=== PATIENT | female | born 1940 | race Caucasian/White ===

== ENCOUNTER 2020-05-12 13:42 | Outpatient (CLI) | payer MEDICARE, SELFPAY ==
--- NOTE | ~2020-05-12 | MR_ITS ---
EXAMINATION: MR knee RT wo con DATE: 05/12/2020 16:01 INDICATION: Right knee pain. TECHNIQUE: Magnetic resonance imaging (MRI) of the right knee was performed without intravenous contr ast. Sequences included axial PD-weighted FS FSE, coronal PD-weighted FSE and PD-weighted FS FSE, sag ittal PD-weighted FSE, and sagittal T2-weighted FS FSE. COMPARISON: Right knee radiographs 04/28/2020 FINDINGS: Medial compartment: There is a complex tear involving body and posterior horn of medial meniscus. There is shallow partia l-thickness cartilage loss of tibial condyle. There is deep partial thickness cartilage loss of femor al condyle involving the medial, central, and lateral articular surface. There is shallow partial-thi ckness cartilage loss of the femoral condyle posterior articular surface. Osteophytes are noted. Lateral compartment: Lateral meniscus is normal. Lateral compartment cartilage is normal. Patellofemoral compartment: There is full-thickness cartilage loss of patellar medial facet, median ridge, and medial aspect of l ateral facet with mild subchondral edema-like marrow signal intensity. There is shallow partial-thick ness cartilage loss of medial trochlea. Ligaments and tendons: The anterior and posterior cruciate ligaments are normal. Medial collateral ligament is intact. There are changes of prior sprain of fibular collateral ligament characterized by thickening and increased signal intensity proximally. There is mild patellar tendinopathy. Fluid: There is a small knee joint effusion. There is a moderate-sized Matthews's cyst. There is moderate prepa tellar and superficial infrapatellar bursitis. IMPRESSION: 1. Severe chondrosis of patellofemoral compartment and moderate chondrosis of medial compartment. 2. Tear of medial meniscus. 3. Small knee joint effusion. 4. Moderate-sized Matthews's cyst. Reviewed, dictated and finalized at location A. IMPRESSION: 1. Severe chondrosis of patellofemoral compartment and moderate chondrosis of m edial compartment. 2. Tear of medial meniscus. 3. Small knee joint effusion. 4. Moderate-sized Matthews's cyst.
== END 2020-05-12 13:43 | disposition home or self-care (01) ==
PROVIDERS: PCP Family Medicine; Visit Provider Nurse Practitioner Family
DX: M25.561 Pain in right knee (principal); M22.2X1 Patellofemoral disorders, right knee; S83.241A Other tear of medial meniscus, current injury, right knee, initial encounter; M25.461 Effusion, right knee; M71.21 Synovial cyst of popliteal space [Baker], right knee
CPT/HCPCS: 73721

== ENCOUNTER 2020-06-03 12:30 | Outpatient (RCR) | payer MEDICARE, SELFPAY ==
--- NOTE | 2020-05-27 15:57 | PTOPEVAL ---
INITIAL PHYSICAL THERAPY EVALUATION and PLAN OF CARE Thank you for referring Carmen Burleson to [facility]. Carmen will be seen 1-3 times over 6 wk period for updating of her HEP. At present, she does not have any R knee pain. Please review, sign, date and return this plan of care JUSTIN. I agree with and certify that the following plan of care is medically necessary. Referring Physician Date Admitting Provider: Attending Provider: Jose Evans MD Referring Provider: *PT Outpatient Evaluation Start: 05/27/20 14:41 Freq: Status: Active Protocol: Document 05/27/20 14:41 HUBERT (Rec: 05/27/20 15:44 HUBERT [id number]) Therapy Assessment Status Assessment Status Assessment Status Evaluation Outpatient Past Medical History Past Medical History Source of Past Medical History Patient Neurological History Hx Neurological Disorders No Significant History Cardiovascular History Hx Hypercholesterolemia Yes Hx Other Cardiac Disorders Yes: L bundle blockage Respiratory History Hx Other Respiratory Disorders Yes: seasonal allergies Gastrointestinal History Hx Gastrointestinal Disorders No Significant History Genitourinary History Hx Other Genitourinary Disorders Yes: under MD care for kidney function Musculoskeletal History Hx Other Musculoskeletal Disorders Yes: R knee pain Endocrine History Hx Endocrine Disorders No Significant History Evaluation Information Problem Diagnosis R knee pain Onset December 2019 Additional Evaluation Detail in past burning now and then with medial knee for several years Subjective Information On vacation - increased Query Text:As Reported By Patient/ discomfort on drive down - Family pain kept getting worse - had difficulty moving knee, getting comfortable. Did see [facility] in [place]. Saw Dr Dixon 05/18/2020 - received injection in R knee - feeling pretty good now - relieved her pain. From December until April - increased knee pain - pain medication didn't help. Began to feel some discomfort in L knee - thinks over using it. Still will have a twinge medial joint line every once in awhile since the injection. Diagnostic Tests X-Rays For This Problem Yes Prior Level of Function Activity Level (Last 3 Months) Hand Dominance Right Medications Home Meds (Includ
--- NOTE | 2020-06-03 15:06 | PCPTNOTE ---
PHYSICAL THERAPY DISCHARGE SUMMARY Admitting Provider: Attending Provider: Jose Evans MD Patient:Carmen Burleson Date of :1940 Carmen returned for her follow up visit to recheck her HEP. She is performing it well and updates were performed this date. She still does not have any R knee pain. It was decided that she would be good on her own with the HEP. Carmen will be discharged at this time. Patient?s initial visit was on 05/27/2020 14:30 and she had a total of 2 visits. The goals have been met. Thank you for referring Carmen to [facility]. Please review, sign, date and return this discharge summary JUSTIN. I have been updated about Carmen's current status and I agree with discharge from the above service at this time. Referring Physician Date
== END 2020-06-09 10:07 | disposition home or self-care (01) ==
LOC: ANHHIPT 12:30
PROVIDERS: PCP Family Medicine; Visit Provider Orthopaedic Surgery
DX: M25.561 Pain in right knee (principal)
CPT/HCPCS: 97110; 97161

== ENCOUNTER 2020-12-19 13:45 | Outpatient (CLI) | payer MEDICARE, SELFPAY ==
--- NOTE | ~2020-12-19 | MR_ITS ---
EXAMINATION: MR brain/brain stem wo con EXAM DATE: 12/19/2020 14:43 INDICATION: R51.9 - Headache, unspecified. TECHNIQUE: Magnetic resonance imaging (MRI) of the brain/brain stem obtained without contrast. [place] al T1, axial diffusion, gradient echo (T2*), T1, T2, FLAIR sequences obtained. There are no prior st udies for comparison. FINDINGS: Frontal and sphenoid sinuses are not developed and there are small maxillary sinuses with m ucoperiosteal thickening and air-fluid levels. There is moderate ethmoid mucoperiosteal thickening. There are no areas of restricted diffusion to suggest acute infarction. There is no acute hemorrhage seen on the T2*, a hemosiderin sensitive sequence. No intraparenchymal brain mass. The ventricles a re normal in size. There are no extra-axial collections. Flow voids are seen in the cerebral arteri es on the T2-weighted sequences consistent with their expected patency. Patient has had bilateral oc ular lens surgery. Soft tissue is unremarkable. IMPRESSION: 1. No acute intracranial findings. 2. Sinus opacity as above. Reviewed, dictated and finalized at location B. 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
== END 2020-12-19 13:46 | disposition home or self-care (01) ==
LOC: ANHIMG 13:47
PROVIDERS: PCP Family Medicine; Visit Provider Family Medicine
DX: R51.9 Headache, unspecified (principal)
CPT/HCPCS: 70551

== ENCOUNTER 2021-10-05 08:05 | Outpatient (CLI) | payer MEDICARE, SELFPAY ==
--- NOTE | ~2021-10-05 | DEXA_ITS ---
Bone Density Report Name: JB BRIGGS Age: 80 Sex: Female Ethnicity: White Date of : 1940 Indication: osteopenia; hyperparathyroidism; hysterectomy; postmenopausal Referring Provider: Kalie Encarnacion Study: Bone densitometry was performed. Exam Date: October 05, 2021 Accession number: [id number] Bone Density: Region BMD T-score Z-score Classification AP Spine (L3, L4) 1.103 0.0 2.8 Normal Femoral Neck (Left) 0.750 -0.9 1.4 Normal Total Hip (Left) 0.893 -0.4 1.6 Normal Total Hip Bilateral Avg 0.871 -0.6 1.4 Normal Femoral Neck (Right) 0.755 -0.8 1.4 Normal Total Hip (Right) 0.848 -0.8 1.2 Normal World Health Organization criteria for BMD impression classify patients as: Normal (T-score at or above -1.0), Osteopenia (T-score between -1.0 and -2.5), or Osteoporosis (T-score at or below -2.5). 10-year Fracture Risk: FRAX not reported because: All T-scores for Spine Total, Hip Total, Femoral Neck at or above -1.0 Previous Exams: Region Exam Age BMD T-score BMD Change BMD Change Date g/cm2 vs Baseline vs Previous AP Spine(L3, L4) 10/05/2021 80 1.103 0.0 0.175(18.9%)# 0.175(18.9%)# 06/14/2016 75 0.927 -1.6 Total Hip(Left) 10/05/2021 80 0.893 -0.4 0.093(11.7%)# 0.093(11.7%)# 06/14/2016 75 0.799 -1.2 Total Hip(Right) 10/05/2021 80 0.848 -0.8 0.055(6.9%)# 0.055(6.9%)# 06/14/2016 75 0.793 -1.2 *Denotes significance at 95% confidence level, LSC for AP Spine = 0.022 g/cm2, LSC for Total Hip = 0.027 g/cm2 Clinical Information Provided by Patient: Has used the following medications: HRT (i.e. estrogen/hormone therapy) Has the following medical conditions: Hyperparathyroidism, Hysterectomy Patient maximum height was 63 Menopause Age: 50 No regular weight bearing exercise Onset of menses at age 17 Number of children 3 Impression: The patient has normal bone mass. No significant bone loss was observed. Discussion: BONE DENSITY IS ABOVE THE MINIMUM DESIRABLE LEVEL AT ALL SKELETAL SITES TESTED. This patient?s bone mineral density is above the minimum desirable level (T-score -1.0 or better) at all sites measured. The patient should follow a healthful lifestyle (good nutrition with adequate calcium and vitamin D, and appropriate weight-bearing exercise). Follow-Up: Consider repeating this study in 5 years or sooner if there is some new clinical indication. Reported by: YOHANA on 10/05/2021 8:34:00 AM. ____
== END 2021-10-05 08:06 | disposition home or self-care (01) ==
LOC: ANHIMG 08:08
PROVIDERS: PCP Family Medicine; Visit Provider Family Medicine
DX: Z78.0 Asymptomatic menopausal state (principal); M85.80 Other specified disorders of bone density and structure, unspecified site
CPT/HCPCS: 77080

== ENCOUNTER 2021-11-09 10:19 | Outpatient (CLI) | payer MEDICARE, SELFPAY ==
--- NOTE | ~2021-11-09 | MM_ITS ---
EXAMINATION: MM screening al BI w shani HISTORY: Screening TECHNIQUE: Craniocaudal and mediolateral oblique 3-D tomosynthesis images were obtained and synthetic 2-D images were generated. CAD analysis was submitted and interpreted. COMPARISON: Comparison to multiple prior studies sequentially, with oldest reviewed study dated 06/14. BREAST PARENCHYMAL COMPOSITION: There are scattered areas of fibroglandular density. FINDINGS: There is no evidence of suspicious mass, calcification, or architectural distortion to sugg est malignancy in either breast. There has been no suspicious interval change. IMPRESSION: 1. No mammographic evidence of malignancy. 2. Recommend routine screening mammography in one year. BI-RADS Category 1: Negative Reviewed, dictated and finalized at location A. 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
== END 2021-11-09 10:20 | disposition home or self-care (01) ==
LOC: ANHIMG 10:24
PROVIDERS: PCP Family Medicine; Visit Provider Family Medicine
DX: Z12.31 Encounter for screening mammogram for malignant neoplasm of breast (principal)
CPT/HCPCS: 77063; 77067

== ENCOUNTER 2022-06-15 08:01 | Outpatient (CLI) | payer MEDICARE, SELFPAY ==
--- NOTE | 2022-06-20 12:15 | WPDPFTINT ---
PFT Procedure Performed PFT Procedure Performed Spirometry with Pre/Post Bronchodilator Plethysmography (Lung Vol) Diffusing Cap (DLCO) Flow Vol Loop PFT Interpretation This is a pulmonary function test with pre and post-bronchodilator spirometry, plethysmography and diffusing capacity. The test was performed and results interpreted in accordance with the 2019 and 2005 ATS/ERS Task Force guidelines respectively using the Global Lung Function Initiative-2012 reference equations. Patient demonstrated good effort and cooperation. Reproducibility criteria were met. The quality of the pre bronchodilator spirometry maneuver was Grade A and post bronchodilator spirometry maneuver was Grade A. Findings: Spirometry: the contour the inspiratory and expiratory flow tracing are normal. The pre bronchodilator FVC is 2.52 L, 101% predicted. The pre bronchodilator FEV1 is 1.85 L, 98% predicted. The pre bronchodilator FEV1: FVC ratio 74%. The post bronchodilator FVC is 2.55 L, representing 1% increase. The post bronchodilator FEV1 is 1.96 L, representing a 6% increase. The post bronchodilator FEV1: FVC ratio 77%. Plethysmography: The total lung capacity is 4.58 L, 93% predicted. The functional residual capacity is 2.56 L, 91% predicted. The residual volume is 2.06 L, 89% predicted. Diffusing capacity: The diffusion capacity unadjusted for hemoglobin and carboxyhemoglobin is 13.5, 71% predicted. The diffusing capacity adjusted for alveolar volume is 3.69, 88% predicted. Impression: The spirometry is normal without evidence of an obstructive abnormality. There is no significant improvement after inhaling a single dose of albuterol. The lung volumes are normal. The diffusing capacity is normal. There are no prior studies for comparison
== END 2022-06-15 08:02 | disposition home or self-care (01) ==
LOC: ANHPFT 08:03
PROVIDERS: PCP Family Medicine; Visit Provider Family Medicine
DX: R93.89 Abnormal findings on diagnostic imaging of other specified body structures (principal); R05.9 Cough, unspecified
CPT/HCPCS: 94060; 94726; 94729

== ENCOUNTER 2022-07-12 08:00 | Outpatient (NON) | payer MEDICARE, SELFPAY | END 2022-07-12 08:01 | disposition home or self-care (01) | LOC: ANHLAB 07-13 08:10 | PROVIDERS: Visit Provider Internal Medicine Gastroenterology | DX: K44.9 Diaphragmatic hernia without obstruction or gangrene (principal) | CPT/HCPCS: 88305 ==

== ENCOUNTER 2022-07-12 12:59 | Day surgery (SDC) | payer MEDICARE, SELFPAY ==
[2022-07-11 10:44] VITALS: BMI 25.3
[2022-07-11 13:59] VITALS: BMI 25.4
--- NOTE | 2022-07-11 15:22 | PM.HPGS ---
History of Present Illness History of Present Illness Consent: Risks, benefits, and alternatives have been discussed and questions answered. Patient agrees to proceed with procedure. Chief complaint: Hiatal Heria and Gerd Narrative: Carmen Burleson is a 81 year old female with chronic reflux Sx. She had an esophageal stricture dilated about 10 years ago. She has had a fluttering and heavy sensation in her chest lately. Cardiac studies normal. No true dysphagia for solids. Review of Systems Review of Systems: All systems reviewed & are unremarkable except as noted in HPI and below PMFSH Past Medical History Medical History Abnormal digestive system diagnostic imaging Atrial fibrillation patient denies Atypical chest pain Bilateral knee pain Degenerative joint disease of knee SHEPPARD (dyspnea on exertion) Esophageal stricture GERD with esophagitis Hiatal hernia Hiatal hernia Hyperlipidemia LBBB (left bundle branch block) Palpitations Right knee pain Surgical History Surgical History H/O: hysterectomy Family History Family History Other Arthritis Family history of heart disease in male family member before age 55 Family history of lung cancer Family history of throat cancer Hypertension Social History Social History Smoking status: Never smoker Second hand tobacco smoke exposure: No Alcohol intake: current Drinks per week: 2 Substance use: never Substance use type: does not use Living arrangements: with family Gender identity (if verbalized by the patient): Female Spiritual care concerns: No Agree to blood products: Yes Meds Home Medications and Allergies Home Medications Medication Instructions Recorded Confirmed Type simvastatin 20 mg tablet See Rx Instructions .Route 07/25/21 07/12/22 Rx .COMPLEX #90 tabs metoprolol succinate 25 mg See Rx Instructions .Route .COMPLEX 10/10/21 07/12/22 History tablet,extended release 24 hr albuterol sulfate 90 mcg/actuation 2 puff inhalation Q4H PRN 02/23/22 07/12/22 Rx aerosol inhaler (Ventolin HFA) shortness of breath or wheezing #8.5 grams calcium carbonate 200 mg calcium 200 mg PO BID 02/25/22 07/12/22 History (500 mg) chewable tablet (Tums) estradiol 0.5 mg tablet See Rx Instructions .Route 06/20/22 07/12/22 Rx .COMPLEX #90 tabs omeprazole 20 mg capsule,delayed 20 mg PO DAILY #90 caps 07/05/22 07/12/22 Rx release Allergies Allergy/AdvReac Type Severity Reaction Status Date / Time Penicillins Allergy Mild Unknown Verified 07/12/22 14:04 Exam Const: General: alert Orientation/consciousness: patient oriented x3 Resp: Auscultation: clear to auscultation bilaterally Cardio: Rhythm: regular rhythm GI: GI Palp: Yes Soft to palpation and No Tenderness to palpation present (GI) Neuro: General: patient oriented x3 Assessment and Plan Assessment and plan (1) GERD with esophagitis: Code(s): K21.00 - Gastro-esophageal reflux disease with esophagitis, without bleeding Status: Acute Assessment and Plan: EGD with possible biopsy or dilatation or cautery.
--- NOTE | 2022-07-12 11:46 | WPDANESEPPF ---
Anes - Initial Pre Proc Eval Procedure: Operation Date: 07/12/22 14:30 Proposed Procedures p Esophagogastroduodenoscopy - Casey Byrne MD Date/Time: 07/12/22 11:46 Surgeon: Casey Byrne MD Pre Op Diagnosis: Hiatal Heria and Gerd Patient Data Age: 81 Gender: F Height: 1.6 m Weight: 65 kg Allergies Allergy/AdvReac Type Severity Reaction Status Date / Time Penicillins Allergy Unknown Unknown Verified 06/19/22 10:38 Home Medications Medication Instructions Recorded Confirmed Type simvastatin 20 mg tablet See Rx Instructions .Route 07/25/21 06/19/22 Rx .COMPLEX #90 tabs metoprolol succinate 25 mg See Rx Instructions .Route .COMPLEX 10/10/21 06/19/22 History tablet,extended release 24 hr albuterol sulfate 90 mcg/actuation 2 puff inhalation Q4H PRN 02/23/22 06/19/22 Rx aerosol inhaler (Ventolin HFA) shortness of breath or wheezing #8.5 grams calcium carbonate 200 mg calcium 200 mg PO BID 02/25/22 06/19/22 History (500 mg) chewable tablet (Tums) estradiol 0.5 mg tablet See Rx Instructions .Route 06/20/22 Rx .COMPLEX #90 tabs omeprazole 20 mg capsule,delayed 20 mg PO DAILY #90 caps 07/05/22 Rx release Patient hx anesthesia problems: none Family hx anesthesia problems: none Results Review: All pre-operative results and documents have been reviewed as part of the pre-operative evaluation. [facility] Past Medical History Medical History (Updated 07/12/22 @ 13:49 by Jason Thurston DO) Abnormal digestive system diagnostic imaging Atrial fibrillation patient denies Atypical chest pain Bilateral knee pain Degenerative joint disease of knee SHEPPARD (dyspnea on exertion) Esophageal stricture GERD with esophagitis Hiatal hernia Hiatal hernia Hyperlipidemia LBBB (left bundle branch block) Palpitations Right knee pain Surgical History Surgical History H/O: hysterectomy Family History Family History Other Arthritis Family history of heart disease in male family member before age 55 Family history of lung cancer Family history of throat cancer Hypertension Social History Social History Smoking status: Never smoker Second hand tobacco smoke exposure: No Alcohol intake: current Drinks per week: 2 Substance use: never Substance use type: does not use Living arrangements: with family Gender identity (if verbalized by the patient): Female Spiritual care concerns: No Agree to blood products: Yes Anes - Eval Final PreProcedure Day of Procedure 07/12/22 11:46 Patient weight: overweight Heart: regular rate and rhythm Lungs: clear to auscultation Airway: Mallampati scale class II Neurological: alert and oriented Last oral intake: >/= 8 hours ASA classification: III Emergent: no Anesthetic plan: proceed Anesthesia type and monitoring: general GIVS and standard monitoring Results Review: All pre-operative results and documents have been reviewed as part of the pre-operative evaluation. Informed Consent: The patient's anesthetic plan and its attendant risks and benefits were discussed with the patient/family/POA. Questions were solicited and answers provided to the satisfaction of the patient/family/POA.
[2022-07-12 13:20] VITALS: BP 146/76; PULSE 54; RESP 16; TEMP 36.1; O2SAT 98
[2022-07-12] MEDS: LACTATED RINGERS 1,000 ML 150 ML IV CONT (14:09)
--- NOTE | 2022-07-12 14:37 | SUR.OPER ---
BALLOON DILATION TO ESOPHAGEAL STRICTURE 18-19MM
[2022-07-12 14:43] VITALS: BP 93/59; PULSE 58; RESP 16; O2SAT 97
--- NOTE | 2022-07-12 14:50 | WPDANESPN ---
Anes - Prog Note Post-Op Date/Time: 07/12/22 14:50 Cardiovascular status: normal Respiratory status: normal Airway patency: baseline Mental status: baseline Post-Op hydration status: normal Vital Signs: Last Vital Signs Temp 36.1 C L 07/12/22 13:20 Pulse 54 L 07/12/22 13:20 Resp 16 07/12/22 13:20 BP 146/76 H 07/12/22 13:20 Pulse Ox 98 07/12/22 13:20 O2 Del Method Room Air 07/12/22 13:20 Pain Score (VAS): 0 Post-procedural complaints: none Patient Feedback: Patient satisfied with anesthetic care. Other Findings: Patient vital signs back to baseline. Patient denies nausea and vomiting. Patient's pain under control. Patient OK for discharge.
[2022-07-12 14:53] VITALS: BP 118/96; PULSE 50; RESP 16; O2SAT 98
[2022-07-12 15:03] VITALS: BP 128/95; PULSE 55; RESP 18; O2SAT 98
== END 2022-07-12 15:27 | disposition home or self-care (01) ==
PROVIDERS: Visit Provider Internal Medicine Gastroenterology
PROC: 0DJ08ZZ Inspection of Upper Intestinal Tract, Via Natural or Artificial Opening Endoscopic (ICD-10-PCS; CPT 43235; principal; 2022-07-12 14:30)
DX: K21.00 Gastro-esophageal reflux disease with esophagitis, without bleeding (principal)
CPT/HCPCS: 43249; 43239

== ENCOUNTER 2024-07-21 14:05 | Emergency (ER) | payer MEDICARE, SELFPAY ==
[2024-07-21 14:28] VITALS: BP 137/70; PULSE 63; RESP 16; TEMP 36.2; O2SAT 98
--- NOTE | 2024-07-21 14:35 | ED.EAR ---
HPI - Ear Problem General Chief complaint: Ear Stated complaint: RT Ear Pain Time Seen by Provider: 07/21/24 14:35 Source: patient, RN notes reviewed and old records reviewed Mode of arrival: ambulatory Limitations: no limitations History of Present Illness HPI Narrative: patient presents with complaints of right ear pain. She reports that she has had some nasal drainage for a while . States that yesterday she began to have some right ear pain. She thought it would go away, awakened today and pain was worse. She has not been taking anything for her symptoms. She denies any injury or trauma. Voices no other concerns or complaints today Related Data Allergies Allergy/AdvReac Type Severity Reaction Status Date / Time Penicillins AdvReac Mild Rash Verified 07/21/24 14:16 Review of Systems Review of Systems: All systems reviewed & are unremarkable except as noted in HPI and below Constitutional: Constitutional: Reports no additional constitutional complaints ENT: Reports system reviewed and no additional complaints, except as documented, Reports as per HPI, Denies ear discharge and Reports otalgia Cardiovascular: Cardiovascular: Reports no additional cardiovascular complaints Respiratory: Respiratory: Reports no additional respiratory complaints Gastrointestinal: Gastrointestinal: Reports no additional gastrointestinal complaints [facility] Past Medical History Medical History ) Atrial fibrillation patient denies Atypical chest pain Bilateral knee pain Esophageal stricture GERD with esophagitis Hiatal hernia Hiatal hernia Hyperlipidemia LBBB (left bundle branch block) Palpitations Right knee DJD Surgical History Surgical History H/O: hysterectomy Family History Family History Other Arthritis Family history of heart disease in male family member before age 55 Family history of lung cancer Family history of throat cancer Hypertension Social History Social History Social History: 07/08/24 very confident with medical forms Smoking status: Never smoker Second hand tobacco smoke exposure: No Alcohol intake: current Drinks per week: 2 Substance use: never Substance use type: does not use Do You Feel Safe in your Home?: Yes Lack of Transportation: No Lack of Food: Never True Current Housing: I Have Housing Concerned About Future Housing: No Difficulty Paying Gas/Electric Bills: No Difficulty Paying for Meds: No Currently Unemployed: No Education: Bachelor's Degree Difficulty w/ Childcare or Family Care: No Living arrangements: with family Occupation/Education: retired Gender identity (if verbalized by the patient): Female Spiritual care concerns: No Agree to blood products: Yes Comments At the time of my signature, I reviewed and agree with the nursing past medical, surgical, social, and family history. There is no relevant family history pertinent to the patient complaint. Exam Const: General: cooperative, no acute distress, alert and awake Orientation/consciousness: oriented to person, oriented to place and oriented to time HENMT: Head: normal to inspection Ears: TM normal on the left and TM abnormal bulging, erythematous and with loss of landmarks Resp: Effort & Inspection: normal respiratory effort and able to speak in complete sentences Auscultation: clear to auscultation bilaterally, no crackles, no rales, no rhonchi and no wheezes Cardio: Palpation: normal PMI Rate: regular rate Rhythm: regular rhythm Heart sounds: S1 normal heart sound present and S2 normal heart sound present Neuro: General: oriented to person, oriented to place and oriented to time Cranial nerves: Yes CN's II-XII intact bilaterally Psych: Appearance: grossl
== END 2024-07-21 14:56 | disposition home or self-care (01) ==
PROVIDERS: Emergency Provider Nurse Practitioner Family
DX: H66.001 Acute suppurative otitis media without spontaneous rupture of ear drum, right ear (principal); K21.00 Gastro-esophageal reflux disease with esophagitis, without bleeding; E78.5 Hyperlipidemia, unspecified; M17.11 Unilateral primary osteoarthritis, right knee
CPT/HCPCS: 99213; G0463

== ENCOUNTER 2024-08-17 14:15 | Outpatient (RCR) | payer MEDICARE, SELFPAY ==
--- NOTE | 2024-07-14 12:50 | PTOPEVAL1 ---
Assessment and note entered by Giovanna Mai, PT Evaluation Information Assessment Status Evaluation Diagnosis M79.601 ICD-10 Condition Codes (PT) M25.511,Weakness R53.1 Onset approx a month ago Subjective Information Pt reports increased pain to R UE which she recalls started approx a month ago, after participating at a [employer] 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 Denies taking medications due to unable to take Ibuprofen, Tylenol does not seem to work for her pain even in the past. Denies shoulder stiffness in the morning, pain is felt more after repeated movements of elbow, rotating shoulder in and out, pain is located in the upper arm towards inner side. Reported Pain Level Pain Score 4: Self Report Assessment PT Clinical Summary Pt is an 83 yo female who presents to therapy with c/o pain to R shoulder which is worse with repeated movements, with noted significant weakness to upper arm musculature. Demos positive Speed's test and increased pain with shoulder flexion, elbow flexion and supination, indicative of biceps muscle affectation, scored 59 on DASH which indicates moderate disability. Pt reports pain significantly impacted her ADLs and IADLs. She will benefit from skilled PT to reduce pain, improve strength and improve functional mobility of RUE. Plan of Care Interventions Electrical Stimulation,Hot Pack/Cold Pack,Manual Therapy,Neuro Re-education,Patient/Caregiver Education,Therapeutic Activities,Therapeutic Exercise,Ultrasound Other Interventions IASTM, Taping PT Services Indicated Yes Treatment Frequency and 2x/wk x 20 Duration These treatments will address the objective and functional deficits as defined above. The patient will be advanced safely and appropriately in order for the patient to progress towards his/her prior level of function. Additional exercises will be introduced and as well as a comprehensive home exercise program upon discharge, if needed, ?to ensure carryover of functional gains achieved in the clinic. This treatment plan has been reviewed and agreement upon by the patient.
--- NOTE | 2024-07-22 16:55 | PCPTNOTE ---
Pt did not show up for her appointment today.
--- NOTE | 2024-08-26 15:19 | PCPTNOTE ---
Patient did not show up for scheduled appointment this date.
--- NOTE | 2024-09-22 10:44 | PTOPDC ---
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 Denies taking medications due to unable to take Ibuprofen, Tylenol does not seem to work for her pain even in the past. Denies shoulder stiffness in the morning, pain is felt more after repeated movements of elbow, rotating shoulder in and out, pain is located in the upper arm towards inner side. Assessment PT Clinical Summary Pt received a total of 6 visits and showed some improvement in levels of pain and mobility. However, she feels like she does not need to come to therapy anymore and called the office wanting to be DC'd. Skilled PT discontinued per patient request. Plan of Care PT Services Indicated No
== END 2024-09-22 12:54 | disposition home or self-care (01) ==
LOC: ANHHIPT 14:15
PROVIDERS: PCP Nurse Practitioner Family; Visit Provider Nurse Practitioner Family
DX: M79.601 Pain in right arm (principal)
CPT/HCPCS: 97014; 97035; 97110; 97140; 97161; 97530; G0283

== ENCOUNTER 2024-12-22 09:08 | Outpatient (CLI) | payer MEDICARE, SELFPAY ==
--- NOTE | ~2024-12-22 | NM_ITS ---
EXAMINATION: NM chase stress w perfusion DATE: 12/22/2024 11:10 INDICATION: Left bundle branch block. Preop. TECHNIQUE: Rest images were obtained following intravenous administration of 10.7 mCi Tc99m tetrofosm in (Myoview). The patient was infused intravenously with Lexiscan (regadenoson). Then, 33.7 mCi Tc99m tetrofosmin (Myoview) was administered intravenously, and stress images were obtained. Data was megha nstructed into short axis and horizontal and vertical long axis SPECT images. Gated SPECT images were also obtained. COMPARISON: Myocardial perfusion imaging 09/28/2019 FINDINGS: There is no definite reversible or fixed perfusion abnormality to suggest ischemia or infar ction. There is no segmental wall motion abnormality. Left ventricular ejection fraction measures 5 8%. IMPRESSION: 1. No definite ischemia or infarct. 2. Normal left ventricular ejection fraction measuring 58%. Reviewed, dictated and finalized at location A. CONDITIONING SHEET METAL INSTALLER
--- NOTE | 2024-12-22 09:11 | EST_ITS ---
Patient Info Name: Carmen Burleson Age: 84 years : 1940 Gender: Female Ht: 63 in Wt: 138 lbs BSA: 1.68 m2 HR: 58 bpm BP: 134 / 83 mmHg Exam Date: 12/22/2024 10:06 AM Exam Location: [facility] Patient Status: Outpatient Admit Date: 12/22/2024 Staff Ordering Physician: Milo Heredia DO Attending Provider: Milo Heredia DO Exercise Technologist: Sherrill Fowler RDCS Exercise Physician: Milo Heredia DO Exam Type: CA stress chase w NM Study Info A regadenoson stress test was performed. Summary 1. 1. Inconclusive lexiscan stress test for ischemic ST changes by ECG criteria due to baseline LBBB. 2. 2. Stable hemodynamics throughout the test. 3. 3. Nuclear scan to follow and will be reported separately. Please correlate with it. 4. 4. Patient informed of the above results. Protocol: Lexiscan Stress ECG Details Stage: REST Duration (min): 1 min : 15 sec HR (bpm): 58 SBP (mmHg): 134 DBP (mmHg): 83 Stage: REST Duration (min): 6 min : 23 sec HR (bpm): 62 SBP (mmHg): 134 DBP (mmHg): 83 Stage: STAGE 1 Duration (min): 1 min : 0 sec HR (bpm): 82 SBP (mmHg): 162 DBP (mmHg): 77 Stage: RECOVERY Duration (min): 1 min : 0 sec HR (bpm): 91 SBP (mmHg): 162 DBP (mmHg): 77 Stage: RECOVERY Duration (min): 2 min : 0 sec HR (bpm): 85 SBP (mmHg): 162 DBP (mmHg): 77 Stage: RECOVERY Duration (min): 3 min : 0 sec HR (bpm): 88 SBP (mmHg): 144 DBP (mmHg): 76 Stage: RECOVERY Duration (min): 3 min : 35 sec HR (bpm): 87 SBP (mmHg): 144 DBP (mmHg): 76 Rest HR: 62 bpm Peak HR: 91 bpm Rest Sys BP: 134 mmHg Peak Sys BP: 162 mmHg Max Pred HR: 138 bpm % Max Pred HR: 66 % Target HR: 117 bpm Max RPP: 14,742 bpm*mmHg Termination Reason: Completed protocol Cardiac Symptoms: None Total Time: 1 min : 0 sec Rest [place] BP: 83 mmHg Peak [place] BP: 77 mmHg Total Dose: 0.4 mg Resting ECG Sinus rhythm, LBBB. Stress ECG No ST changes. Arrhythmias None. Report Signatures
--- OUTSIDE RECORDS SUMMARY | 2024-12-22 09:52 | XMS_ITS | Clinical Summary ---
Author Organization [facility] Address [address] [place] [address] Care Team Providers Care Manager Of Compensation Name Role Phone Iveth MacedoP Primary Care Provider [phone] Encounters Date Type Department Care Team Description 10/30/2024 1:12 PM BICYCLE SERVICE TECHNICIAN - 10/30/2024 11:59 PM BICYCLE SERVICE TECHNICIAN Hospital Encounter [facility] [address] [place] [address] Iveth Macedo FNP Discharge Disposition: Home or Self Care (Routine Discharge) 10/30/2024 Travel 09/28/2024 1:30 PM BICYCLE SERVICE TECHNICIAN - 09/28/2024 11:59 PM BICYCLE SERVICE TECHNICIAN Hospital Encounter [facility] [address] [place] [address] Angella Zuniga NP Discharge Disposition: Home or Self Care (Routine Discharge) 09/28/2024 Orders Only [facility] [address] [place] [address] Angella Zuniga NP 09/28/2024 Travel from Last 3 Months Social History Tobacco Use Types Packs/Day Years Used Date Smoking Tobacco: Never Assessed Comments Unknown Sex and Gender Information Value Date Recorded Sex Assigned at Not on file Legal Sex Female 5:29 PM CDT Gender Identity Not on file Sexual Orientation Not on file Plan of Treatment Health Maintenance Due Date Last Done Comments Annual Medicare Wellness Visit 2007 Dexa Scan (General) 2007 RSV Immunization or 60+ Years (1 - 1-dose 75+ series) 2017 COVID-19 Vaccine (3 - season) 2024 01/08/2021, 12/10/2020 Influenza Adult (#1) 2024 07/11/2020, 09/18/2019, 08/23/2018, Additional history exists DTaP, Tdap and Td Vaccines (3 - Td or Tdap) 04/03/2028 04/03/2018, 09/11/2013 Pneumococcal Vaccine: 65+ Years Completed 09/28/2020, 09/18/2019 Zoster Vaccines Completed 09/28/2020, 07/11/2020 Meningococcal B Vaccine Aged Out No l onger eligible based on patient's age to complete this topic Meningococcal Vaccine Aged Out No chula ephraim eligible based on patient's age to complete this topic RSV Immunizations Under 20 Months Aged Out No longer eligible based on patient's age to complete this topic Procedures Procedure Name Priority Date/Time Associated Diagnosis Comments MRI SHOULDER RT WO CON Routine 2:18 PM BICYCLE SERVICE TECHNICIAN Pain in right shoulder IMMUNOGLOBULINS IGA IGG IGM Routine 09/28/2024 1:52 PM BICYCLE SERVICE TECHNICIAN MGUS (monoclonal gammopathy of unknown significance) KAPPA LAMBDA FREE RATIO (QST) Routine 09/28/2024 1:52 PM BICYCLE SERVICE TECHNICIAN MGUS (monoclonal gammopathy of unknown significance) IMMUNOFIXATION Routine 09/28/2024 1:52 PM BICYCLE SERVICE TECHNICIAN MGUS (monoclonal gammopathy of unknown significance) PROTEIN, ELECTROPHORESIS Routine 09/28/2024 1:52 PM BICYCLE SERVICE TECHNICIAN MGUS (monoclonal gammopathy of unknown significance) COMPREHENSIVE METABOLIC PANEL Routine 09/28/2024 1:52 PM BICYCLE SERVICE TECHNICIAN MGUS (monoclonal gammopathy of unknown significance) CBC W/DIFF AUTOMATED Routine 09/28/2024 1:52 PM BICYCLE SERVICE TECHNICIAN MGUS (monoclonal gammopathy of unknown significance) from Last 3 Months Results * MRI SHOULDER RT WO CON (10/30/2024 2:18 PM BICYCLE SERVICE TECHNICIAN) Anatomical Region Laterality Modality Shoulder Magnetic Resonan ce 11/01/2024 3:14 PM BICYCLE SERVICE TECHNICIAN Impressions 11/01/2024 3:18 PM BICYCLE SERVICE TECHNICIAN IMPRESSION: 1. Moderate degenerative change right acromioclavicular joint. 2. Moderate to large amount of subacromial subdeltoid bursal fluid. 3. Small glenohumeral joint effusion. 4. Prominent full-thickness tear distal supraspinatus tendon. 5. Minimal abnormal signal intensity infraspinatus tendon consistent with partial tear or tendinosis. Referred By: IVETH MACEDO Interpreted By: Kike Doty MD, 11/01/2024 3:14 PM Narrative 11/01/2024 3:18 PM BICYCLE SERVICE TECHNICIAN [facility] [address] [place] [address] Examination: MRI SHOULDER RT WO CON Exam time: 10/30/2024 1:24 PM Clinical history: Right shoulder pain with limited range of motion. No known injury. Comparison: No previous MRI right shoulder Technique: Axial fat suppression proton density and fat suppression T2 sequences were obtained. Oblique coronal T1, T2, fat suppression proton density, fat suppression T2 sequences were obtained. Oblique sagittal fat suppression T2 sequence was performed. Findings: There is moderate degenerative change involving the right acromioclavicular joint with minimal inferior extension of osteophyte. There is minimal superior positioning of the right humeral head in relation to the scapular glenoid with decreased subacromial space. Moderate to large amount of subacromial subdeltoid bursal fluid. There is a small glenohumeral joint effusion. There is a prominent full-thickness defect involving the distal supraspinatus tendon. This measures approximately 5 to 7 mm anterior posterior. There is minimal retraction of the supraspinatus tendon. The infraspinatus tendon has minimal abnormal signal intensity consistent with partial tear or tendinosis. Subscapularis and teres minor muscles and tendons appear intact. There is subcortical cystic change within the posterior superior right proximal humeral greater tuberosity region. This would be most consistent with degenerative cyst. No evidence of focal abnormal marrow signal intensity involving the scapula. No definitive MRI evidence of abnormality involving the glenoid labrum. Tendon of the long head of the biceps muscle is normal in position and location. Procedure Note Kike Doty MD - 11/01/2024 [facility] [address] [place] [address] Examination: MRI SHOULDER RT WO CON Exam time: 10/30/2024 1:24 PM Clinical history: Right shoulder pain with limited range of motion. [place] injury. Comparison: No previous MRI right shoulder Technique: Axial fat suppression proton density and fat suppression [id number] were obtained. Oblique coronal T1, T2, fat suppression protondensity, fat suppression T2 sequences were obtained. Oblique sagittal fatsuppression T2 sequence was performed. Findings: There is moderate degenerative change involving the rightacromioclavicular joint with minimal inferior extension of osteophyte.There is minimal superior positioning of the right humeral head inrelation to the scapular glenoid with decreased subacromial space. Moderate to large amount of subacromial subdeltoid bursal fluid. There is a small glenohumeral joint effusion. There is a prominent full-thickness defect involving the distalsupraspinatus tendon. This measures approximately 5 to 7 mm anteriorposterior. There is minimal retraction of the supraspinatus tendon. Theinfraspinatus tendon has minimal abnormal signal intensity consistent withpartial tear or tendinosis. Subscapularis and teres minor muscles andtendons appear intact. There is subcortical cystic change within the posterior superior rightproximal humeral greater tuberosity region. This would be most consistentwith degenerative cyst. No evidence of focal abnormal marrow signal intensity involving thescapula. No definitive MRI evidence of abnormality involving the glenoid labrum. Tendon of the long head of the biceps muscle is normal in position andlocation. IMPRESSION: 1. Moderate degenerative change right acromioclavicular joint. 2. Moderate to large amount of subacromial subdeltoid bursal fluid. 3. Small glenohumeral joint effusion. 4. Prominent full-thickness tear distal supraspinatus tendon. 5. Minimal abnormal signal intensity infraspinatus tendon consistent withpartial tear or tendinosis. Referred By: IVETH MACEDO Interpreted By: Kike Doty MD, 11/01/2024 3:14 PM Iveth Macedo ESTATE ADMINISTRATOR MRI Final Resul t * (ABNORMAL) KAPPA LAMBDA FREE RATIO (QST) (09/28/2024 1:52 PM BICYCLE SERVICE TECHNICIAN) Pathologist [facility] KAPPA FREE LIGHT CHAIN 27.0(H) 3.3 - 19.4 mg/L 09/30/2024 11:20 AM BICYCLE SERVICE TECHNICIAN [employer] LAMBDA FREE LIGHT CHAIN 72.4(H) 5.7 - 26.3 mg/L 09/30/2024 11:20 AM BICYCLE SERVICE TECHNICIAN [employer] KAPPA/LAMBDA FREE 0.37 0.26 - 1.65 09/30/2024 11:20 AM BICYCLE SERVICE TECHNICIAN [facility] Comment: Free kappa/lambda ratio in serum of normal individuals is 0.26-1.65. Excess production of free kappa or lambda chains can alter the ratio. Monoclonal free light chains are found in the serum of patients with multiple myeloma, Waldenstrom's macroglobulinemia, mu-heavy chain disease, primary amyloidosis, light chain deposition disease, monoclonal gammopathy of undetermined significance, and lymphoproliferative disorders. Measurement of free light chain concen- tration in serum is useful for diagnosis, prognosis, monitoring disease activity and following response to therapy of these disorders. Test Performed by [employer] [facility] [place], [employer] [facility], [address] [place] [address] Casey Davis M.D., Ph.D., Director of Laboratories , [place] [id number] 09/28/2024 1:52 PM BICYCLE SERVICE TECHNICIAN Angella Zuniga NP LABORATORY Final Result [facility] [place] [id number] [place], [place] , * (ABNORMAL) COMPREHENSIVE METABOLIC PANEL (09/28/2024 1:52 PM BICYCLE SERVICE TECHNICIAN) [facility] GLUCOSE 83 70 - 99 MG/DL 09/28/2024 2:21 PM [facility] BUN 24(H) 7 - 18 MG/DL 09/28/2024 2:21 PM [facility] CREATININE S/P/B 1.12(H) 0.55 - 1.02 MG/DL 09/28/2024 2:21 PM [facility] SODIUM S/P/B 145 136 - 145 MMOL/L 09/28/2024 2:21 PM [facility] POTASSIUM S/P/B 4.3 3.5 - 5.1 MMOL/L 09/28/2024 2:21 PM [facility] CHLORIDE S/P/B 109(H) 100 - 108 MMOL/L 09/28/2024 2:21 PM [facility] CO2 26.3 21 - 32 MMOL/L 09/28/2024 2:21 PM [facility] CALCIUM S/P/B 8.3(L) 8.5 - 10.1 MG/DL 09/28/2024 2:21 PM [facility] BILIRUBIN TOTAL S/P/B 0.4 0.2 - 1.2 MG/DL 09/28/2024 2:21 PM [facility] TOTAL PROTEIN S/P/B 6.9 6.4 - 8.2 G/DL 09/28/2024 2:21 PM [facility] ALBUMIN S/P/B 3.1(L) 3.4 - 5.0 G/DL 09/28/2024 2:21 PM [facility] AST 17 15 - 37 U/L 09/28/2024 2:21 PM [facility] ALT 19 14 - 55 U/L 09/28/2024 2:21 PM [facility] ALKALINE PHOSPHATASE S/P/B 82 50 - 136 U/L 09/28/2024 2:21 PM BICYCLE SERVICE TECHNICIAN [facility] ANION GAP 9.7 5 - 15 MMOL/L 09/28/2024 2:21 PM [facility] BUN CREATININE RATIO 21.4 6 - 26 09/28/2024 2:21 PM [facility] A/G RATIO 0.8(L) 1.0 - 2.0 RATIO 09/28/2024 2:21 PM BICYCLE SERVICE TECHNICIAN [facility] GFR ESTIMATE 49(L) >90 ML/MIN/1.7 3 M2 09/28/2024 2:21 PM BICYCLE SERVICE TECHNICIAN [facility] Comment: NOTE: eGFR is not calculated for patients <18 years of age. This is an estimated GFR calculation using the new CKD EPI creatinine equation without race and so does not require a correction factor for race. This estimated GFR should not be used for calculating drug doses. 09/28/2024 1:52 PM BICYCLE SERVICE TECHNICIAN us Angella Zuniga NP LABORATORY Final Result [facility] [address] [place] [address], [place] [phone] * (ABNORMAL) IMMUNOFIXATION (09/28/2024 1:52 PM BICYCLE SERVICE TECHNICIAN) IMMUNOFIXATION SERUM REPORT(A) 09/30/2024 7:57 PM BICYCLE SERVICE TECHNICIAN [facility] Comment: IgG kappa monoclonal band present. Test Performed by Janie Covarrubias, [employer] [facility], [address] [place], [place] Casey Davis M.D., Ph.D., Director of Laboratories , CLIA [id number] 09/28/2024 1:52 PM BICYCLE SERVICE TECHNICIAN us Angella Zuniga NP LABORATORY Final Result [facility] [address] [place] [address], [place] [phone] * (ABNORMAL) CBC W/DIFF AUTOMATED (09/28/2024 1:52 PM BICYCLE SERVICE TECHNICIAN) WBC 7.34 4.4 - 11.0 x10'3/uL 09/28/2024 2:03 PM [facility] RBC 3.55(L) 4.50 - 5.10 x10'6/uL 09/28/2024 2:03 PM [facility] HGB 10.3(L) 12.3 - 15.3 G/DL 09/28/2024 2:03 PM [facility] HCT 32.7(L) 35.9 - 44.6 % 09/28/2024 2:03 PM [facility] MCV 92.1 80.0 - 96.0 FL 09/28/2024 2:03 PM [facility] MCH 29.0 25.3 - 30.9 PG 09/28/2024 2:03 PM [facility] MCHC 31.5 31.0 - 34.1 G/DL 09/28/2024 2:03 PM [facility] RDW 14.2 12.4 - 15.1 % 09/28/2024 2:03 PM [facility] PLT 236 151 - 353 x10'3/uL 09/28/2024 2:03 PM [facility] MPV 9.1(L) 9.6 - 12.0 FL 09/28/2024 2:03 PM [facility] RBC MORPHOLOGY NORMAL 09/28/2024 2:03 PM [facility] PLT MORPH. NORMAL 09/28/2024 2:03 PM [facility] WBC MORPHOLOGY NORMAL 09/28/2024 2:03 PM [facility] LYMPHOCYTES % 17.2 15.8 - 45.0 % 09/28/2024 2:03 PM [facility] NEUTROPHILS % 71.5 42.1 - 71.9 % 09/28/2024 2:03 PM [facility] MONOCYTES % 6.5 5.7 - 12.5 % 09/28/2024 2:03 PM [facility] EOSINOPHILS 4.2 0.0 - 5.6 % 09/28/2024 2:03 PM [facility] BASOPHILS 0.5 0.0 - 1.3 % 09/28/2024 2:03 PM [facility] ABS. NEUTROPHILS 5.24 1.40 - 6.00 x10'3/uL 09/28/2024 2:03 PM [facility] IMMATURE GRANS % 0.1 0.0 - 0.5 % 09/28/2024 2:03 PM [facility] ABS. LYMPHOCYTES 1.26 0.80 - 4.70 x10'3/uL 09/28/2024 2:03 PM [facility] 09/28/2024 1:52 PM BICYCLE SERVICE TECHNICIAN us Angella Zuniga NP LABORATORY Final Result [facility] [address] [place] [address], * (ABNORMAL) PROTEIN, ELECTROPHORESIS (09/28/2024 1:52 PM BICYCLE SERVICE TECHNICIAN) TOTAL PROTEIN (ELECTROPHORESIS SERUM) 6.5 6.1 - 8.1 g/dL 09/30/2024 3:50 PM BICYCLE SERVICE TECHNICIAN [facility] ALBUMIN ELECTROPHORESIS S/P/B 3.7(L) 3.8 - 4.8 g/dL 09/30/2024 3:50 PM BICYCLE SERVICE TECHNICIAN [facility] [id number] S/P/B 0.3 0.2 - 0.3 g/dL 09/30/2024 3:50 PM BICYCLE SERVICE TECHNICIAN [facility] [id number] S/P/B 0.7 0.5 - 0.9 g/dL 09/30/2024 3:50 PM BICYCLE SERVICE TECHNICIAN [facility] BETA 1 GLOBULIN S/P/B 0.5 0.4 - 0.6 g/dL 09/30/2024 3:50 PM BICYCLE SERVICE TECHNICIAN [facility] BETA 2 GLOBULIN S/P/B 0.3 0.2 - 0.5 g/dL 09/30/2024 3:50 PM BICYCLE SERVICE TECHNICIAN [facility] GAMMA GLOBULIN S/P/B 1.0 0.8 - 1.7 g/dL 09/30/2024 3:50 PM BICYCLE SERVICE TECHNICIAN [facility] ABNORMAL PROTEIN BAND 1 S/P/B 0.4(H) g/dL 09/30/2024 3:50 PM BICYCLE SERVICE TECHNICIAN [facility] Comment: Reference Range: None Detected ABNORMAL PROTEIN BAND 3 S/P/B END OF REPORT 09/30/2024 3:50 PM BICYCLE SERVICE TECHNICIAN [facility] ELECTROPHORESIS INTERPRETATION REPORT(A) 09/30/2024 3:50 PM BICYCLE SERVICE TECHNICIAN [facility] Comment: Evaluation reveals a restricted band (M-spike) migrating in the gamma globulin region. If not already requested, Immunofixation should be considered. Test Performed by Janie Covarrubias, [employer] [facility], [address] [place] [address] Casey Davis M.D., Ph.D., Director of Laboratories , CLIA [id number] 09/28/2024 1:52 PM BICYCLE SERVICE TECHNICIAN Angella Zuniga NP LABORATORY Final Result [facility] [address] [place], [place] , [place] [phone] * IMMUNOGLOBULINS IGA IGG IGM (09/28/2024 1:52 PM BICYCLE SERVICE TECHNICIAN) IGA 135 70 - 320 mg/dL 10/01/2024 8:48 PM BICYCLE SERVICE TECHNICIAN [facility] IGG 1,049 600 - 1,540 mg/dL 10/01/2024 8:48 PM BICYCLE SERVICE TECHNICIAN [facility] L[facility] IGM 60 50 - 300 mg/dL 10/01/2024 8:48 PM BICYCLE SERVICE TECHNICIAN [facility] Comment: Test Performed by Janie Covarrubias, [employer] [facility], [address] [place] [address] Casey Davis M.D., Ph.D., Director of Laboratories , [facility] [id number] 09/28/2024 1:52 PM BICYCLE SERVICE TECHNICIAN Angella Zuniga NP LABORATORY Final Result Performing Organization Address [facility]/ZIP Co de Phone Number [facility] [address] [place], [place] , [place] [phone] from Last 3 Months [place] [address] Care Teams Manager Of Compensation Relationship Specialty Start Date End Date Iveth Macedo FNP [facility] [place] [address] PCP - General Nurse Practitioner Family 04/10/24
--- OUTSIDE RECORDS SUMMARY | 2024-12-22 09:52 | XMS_ITS | Clinical Summary ---
Author Organization [facility] Address [address] [place] [phone] Phone Care Team Providers Care Clinical Data Associate Name Role Phone Kalie Encarnacion MD Primary Care Provider Allergies Active Allergy Reactions Criticality Noted Date Comments Penicillins 01/28/2019 Medications Medication Sig Dispensed Refills Start Date End Date Status simvastatin (ZOCOR) 20 MG tablet 1 tab once daily 0 03/04/2018 Active estradiol (ESTRACE) 0.5 MG tablet 1 tab once daily 0 03/04/2018 Active metoprolol succinate XL (TOPROL-XL) 25 MG 24 hr tablet Take 25 mg by mouth 1 (one) time each day 04/28/2021 Active Calcium Carbonate 500 MG chewable tabletIndications:Second marti hyperparathyroidism (CMS-HCC) Chew 1 tablet 2 (two) times a day 90 tablet 11 06/13/2021 Active Additional Information Patient taking differently:1 tablet OralDaily PRN, Reported on 01/15/2023 Active Problems Problem Noted Date Diagnosed Date Hypocalcemia 01/10/2023 Stage 3a chronic kidney disease 06/08/2021 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 Resolved Problems Problem Noted Date Diagnosed Date Resolved Date 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 11/06/2018 01/29/2022 Hematuria 11/06/2018 06/08/2021 Abnormal level of other serum enzyme 04/14/2018 06/08/2021 Vitamin D deficiency 04/14/2018 021 Immunizations Name Administration Dates Next Due Influenza Split High Dose Preservative Free IM 0 11/21/2017 Family History Medical History Relation Comments Heart disease Relative Relation Status Comments Relative Social History Tobacco Use Types Packs/Day Years Used Date Smoking Tobacco: Unknown Smokeless Tobacco: Never Alcohol Use Standard Drinks/Week Comments Never 0 (1 standard drink = 0.6 oz pur e alcohol) AUDIT-C Answer Date Recorded Frequency of Alcohol Consumption Never 03/31/2020 Average Number of Drinks Not on file 020 Frequency of Binge Drinking Not on file 01/2020 Sex and Gender Information Value Date Recorded Sex Assigned at Not on file Gender Identity Not on file Sexual Orientation Not on file Last Filed Vital Signs Vital Sign Reading Time Taken Comments Blood Pressure 135/89 01/14/2024 12:59 PM CDT Pulse 65 01/14/2024 12:59 PM CDT Temperature - - Respiratory Rate - - Oxygen Saturation - - Inhaled Oxygen Concentration - - Weight 65.8 kg (145 lb) 01/14/2024 12:59 PM CDT Height 160 cm (5' 3 ) 01/14/2024 12:59 PM CDT Body Mass Index 25.69 01/14/2024 12:59 PM CDT Plan of Treatment Upcoming Encounters Date Type Department Care Team (Late st Contact Info) Description 01/12/2025 12:20 PM CDT Office Visit [facility] [address], [address] [place], [place] [id number] Denton Feng MD [address] [phone] Health Maintenance Due Date Last Done Comments Pneumococcal PPSV23/PCV13 65 + Years / High and Highest Risk (2 of 4 - PPSV23 or PCV20) 11/13/2019 09/18/2019 COVID-19 Vaccine (3 - Moderna risk series) 02/05/2021 01/08/2021, 12/10/2020 Influenza Vaccine (#1) 2024 11/01/2012 Care Teams Clinical Data Associate Relationship Specialty Start Date End Date Kalie Encarnacion MD [address] [place] [address] [place] [address] PCP - General 01/18/23
--- OUTSIDE RECORDS SUMMARY | 2024-12-22 09:52 | XMS_ITS | Encounter Summary ---
Author Organization [facility] Address [address] [place] [address] Phone Care Team Providers Care Judicial Assistant Name Role Phone Kalie Encarnacion Primary Care Provide r Antonio Ventura MD Unavailable Encounter Details Date Type Department Care Team (Late st Contact Info) Description 09/17/2024 Telephone [facility] [address] [place] [address] Antonio Ventura MD [address] [place] [address] Social History Tobacco Use Types Packs/Day Years Used Date Smoking Tobacco: Never Smokeless Tobacco: Never Alcohol Use Standard Drinks/Week Comments Yes 0 (1 standard drink = 0.6 oz pur e alcohol) very rarely PHQ-2 Answer Date Recorded Total Score - Questions 1-9 0 06/0 06/2022 Comments Unknown Sex and Gender Information Value Date Recorded Sex Assigned at Not on file Legal Sex Female 4:09 PM CDT Gender Identity Not on file Sexual Orientation Not on file documented as of this encounter Plan of Treatment Upcoming Encounters Date Type Department Care Team (Late Contact Info) Description 09/30/2025 1:00 PM NUTRITION CLUB AMBASSADOR Office Visit [facility] [address] [address] Antonio Ventura MD [address] [place] [phone] documented as of this encounter Visit Diagnoses Not on filedocumented in this encounter Additional Health Concerns Assessment Noted Time PHQ-9 Depression Total Score: 0 03/30/20 21 1:26 PM CDT documented as of this encounter Care Teams Judicial Assistant Relationship Specialty Start Date End Date Kalie Encarnacion DO [address] [place] [address] PCP - General Family Medicine 02/04/19 Antonio Ventura MD [address] [place] [address] Consulting Physician Oncology 02/04/19 documented as of this encounter
--- OUTSIDE RECORDS SUMMARY | 2024-12-22 09:52 | XMS_ITS | Data Portability ---
Author Organization [facility], [facility], [facility] Address [address] [place] [address] Care Team Providers Care Manager Dish Name Role Phone ERICK TORRES Referring Provider [phone] Assessment No assessment recorded. Plan of Treatment Reminders Order Date Submit Date Provider Last Modified By Organization Details Last Modified Time Details Appointments None recorded. Lab None recorded. Referral None recorded. Procedures None recorded. Surgeries None recorded. Imaging None recorded. Medication Orders diclofenac sodium 75 mg tablet,del ayed release 2019 020 INTERFACE [facility] [address], [address] [place], [address], 0 12:55:28 Patient TargetsNo targets recorded. Patient Instructions Encounter Date Encounter Id Patient Instructions Last Modified By Organization Details Last Modified Time 01/04/2020 [id number] HEAT ON AND OFF AND SEE FAMILY DOCTOR SEVERINO hays Not available 01/04/2020 12:55:11 Reason for Referral None Reported. Problems Name Problem SNOMED Code Status Onset Date Resolution Date Notes Provider Name and Address Organization Details Recorded Time Hormone therapy Active 2019 Angelic valenzuela [facility], [facility] 0 12:14:53 Hypercholestero lemia [id number] Active 2019 Angelic valenzuela [facility], [facility] 0 12:15:03 Problem Notes None recorded. Procedures Surgical History Date Name Laterality Status Provider Name and Address Organization Details Recorded Time 03/05/20 19 Date of Last Mammogram completed Angelic Faustin [facility], [facility] 01/04/2020 12:13:29 Other completed Angelic Faustin [facility], [facility] 01/04/2020 12:13:31 Hysterectomy completed Angelic Faustin [facility] 01/04/2020 12:13:31 Imaging Results None recorded. Procedure Notes None recorded. Medical Equipment None Reported. Allergies Allergen ID Allergen Name Allergen Category Reaction Reaction Severity Criticality Documentation Date Start Date Code Code System Note Provider Name and Address Organization Details Recorded Time 635135 Product containin g penicilli n (product) medicatio n rash Not available Not available 01/04/2020 36825 8001 SNOMED [facility] 12:13[facility]29 Medications Name Sig Start Date Stop Date Status Note LastModified by Organization Details LastModified Time simvastatin 5 mg tablet Take 1 tablet every day by oral route at bedtime. active Not Available Not Available No t Available diclofenac sodium 75 mg tablet,delaye d release Take 1 tablet twice a day by oral route with meals for 15 days. 020 active Not Available Not Available Not Avai lable Estrace 0.5 mg tablet Take 1 tablet every day by oral route. active Not Available Not Available No t Available Vitals Date Recorded Body weight Body mass index (BMI) Body height Body temperature Heart rate Respiratory rate Oxygen saturation Oxygen saturation in Arterial blood by Pulse oximetry Systolic blood pressure Diastolic blood pressure Provider Name and Address Organization Details Last Updated DateTime 0 95959.3 g 25.5 kg/m2 160.02 cm 97.3 [degF] 66 /min 14 /min 96 % 96 % 155 mm[Hg] 92 mm[Hg] Angelic Faustin [facility] 0 12:12:25 Social History Question Answer Notes LastModified by Organizat ion Details LastModified Time Tobacco Smoking Status Never Smoker Angelic valenzuela [facility] 01/04/2020 12:13:31 Do You Have An Advance Directive? Yes Information not available 01/04/2020 What Is Your Level Of Alcohol Consumption? Occasional Information not available 01/04/2020 What Is Your Level Of Caffeine Consumption? Occasional Information not available 01/04/2020 How Much Tobacco Do You Chew? None [place] [address] Information not available 01/04/2020 What Type Of Diet Are You Following? REGULAR [email or web address] Information not available 01/04/2020 Which Illicit Or Recreational Drugs Have You Used? None [place] [address] Information not available 01/04/2020 Do You Or Have You Ever Used E-cigarettes Or Vape? Never Used Electronic Cigarettes [place] [address] Information not available 01/04/2020 Education 4 Year College [place] [address] Informatio n not available 01/04/2020 Alcohol Use 1-2 Per Week [place] [address] Information not available 01/04/2020 Marital Status [place] [address] Informatio [place] not available 01/04/2020 Are You Sexually Active? No [place] [address] Information not available 01/04/2020 Do You Or Have You Ever Used Smokeless Tobacco? Never Used Smokeless Tobacco [place] [address] Information not available 01/04/2020 Sex: Unknown Functional Status Question Answer Note LastModified by Organizat ion Details LastModified Time What is your exercise level? Occasional [place] [address] Information not available 01/04/2020 Mental Status None recorded. Family History Nothing Reported. Medical History Condition Response Cancer (location) N Other N Gout N Thyroid Disease N Kidney Stones N Measles/Mumps N Emphysema/COPD N Sexually Transmitted Disease N Depression N Prostate Problems N Vascular Disease N Rash/Skin Condition N Amputation (location) N Parkinson's N Paralysis N Headaches/Migraines N Cardiac Pacemaker/defibrillator N Nerve Damage / Neuropathy N Arthritis N Sleep disorder/Insomnia N Infertility N Heart disease / Heart Attack N Crohn's Disease N HIV/AIDS N Stroke/TIA N Colon Problems N High Cholesterol Y Serious Injuries N Kidney Disease N Memory Loss/Alzheimer's N Gallbladder disease N High blood pressure N Congestive heart failure N Falls N Alcohol Overuse N Blood Thinner Treatment N Hormone Replacement Y Nervous Breakdown N Samuel's Esophagus N Anemia N Urinary Problems N Colon Polyps N Gastritis N Hospitalizations (other than operations) N Back pain Y Diabetes N Rheumatic Fever N Bleeding Disorder N Cardiac Arrhythmias /irregular heart rat e N Osteopenia/Osteoporosis N Anxiety/Stress N Asthma N Vision Problems N Erectile / Sexual Dysfunction N Ostomies (location) N Seizures N Jaundice N Sleep Apnea N Past Reacton to Contrast Media N Cirrhosis N GERD/Ulcer N Chicken Pox N Allergies (other than meds) N Gynecological History Statement/Question Response Menses Monthly N STIs/STDs N If Post Menopausal, Age at Menopause 58 Date of Last Mammogram 03/05/2019 Age at First Child 27 Obstetrics History GPAL:G 0 P 0 0 0 0 Past Encounters Encounter ID Performer Location Encounter Start Date Encounter Closed Date Diagnosis/Indication Diagnosis SNOMED-CT Code Diagnosis ICD10 Code Diagnosis Note [id number] Erick Torres DO [facility] [address] [address] [address] [address] [address] 01/04/2020 11:42:48 01/04/2020 13:02:57 Pain in right knee [id number] 20568 M25.561 ACUTE Health Concerns Section Related Observation LastModified by Organization Detai ls LastModified Time None Recorded Concern Status LastModified by Organization Details LastModified Time None Recorded Advance Directives Directive Y: Payers Encounter Date Sequence Insurance Name Policy Number Policy Boothe Covered Member ID Boothe Member ID Guarantor Name 01/04/2020 1 [place] Carmen Burleson [id number] Carmen Burleson 01/04/2020 2 [employer]IG[employer] SUPPLEMENTAL - [employer] (MEDICARE SUPPLEMENT) Carmen Burleson [id number] Carmen Burleson Notes Date Note Type Note Provider Name and Address Organization Details Recorded Time 01/04/2020 text/html Musculoskeletal ComplaintReported bypatient.Reason for visit:acute complaint Location:R knee(s) Quality:pain Severity:better Duration:constant Onset/Timing:abrupt;2 days ago Context:normal activity Alleviating factors:rest Aggravating factors:RIDING IN CAR Associated Symptoms:no chest pain; no palpitations; no shortness of breath; no orthopnea; no cough; no leg pain Erick Torres DO [address] [facility] [address], [place], [address], [facility], [facility] 01/04/2020 12:56:21 OBGyn Episode No OBEpisode recorded.
--- OUTSIDE RECORDS SUMMARY | 2024-12-22 09:52 | XMS_ITS | Clinical Summary ---
Author Organization [facility] Address [address] [place] [address] Phone Care Team Providers Care Equipment Maintenance Engineer Name Role Phone Kalie Encarnacion DO Primary Care Provide r Antonio Ventura MD Unavailable [phone] Allergies Active Allergy Reactions Criticality Noted Date Comments Penicillins Unknown 02/26/2019 Medications estradiol (ESTRACE) 0.5 MG Tablet 11 02/10/2019 Active simvastatin (ZOCOR) 20 MG Tablet 01/06/2019 Active metoprolol Succinate (TOPROL-XL) 25 MG TABLET SR 24 HR Take 25 mg by mouth daily. Half tablet 09/05/2020 Active Active Problems Patient Care Coordination No te Formatting of this note migh t be different from the original. ~~ OF March 02, 2019 PATIENT DOES NOT QUALIFY FOR OCM~~NO DX/TX~~ Problem Noted Date Diagnosed Date MGUS (monoclonal gammopathy of unknown significa nce) 02/26/2019 Encounters Date Type Department Care Team Description 10/01/2024 11:45 AM BI CONSULTANT Office Visit [facility] [address] [place] [address] Antonio Ventura MD MGUS (monoclonal gammopathy of unknown significance) (Primary Dx) 10/01/2024 Travel from Last 3 Months Immunizations Immunization Administration Dates Next Due Covid-19, Mrna, Lnp-s, PF, 1 00 mcg/0.5 mL Dose (Moderna) 01/08/2021,12/10/2020 Influenza, High-dose, Quadrivalent 07/28/2021, Influenza, Seasonal, Injecta ble, Undefined 11/01/2012 Influenza, high-dose, trivalent, PF 06/28,09/18/2019,08/23/2018,2017 Pneumococcal Vaccine - 13 Valent 09/18/2019 Pneumococcal Vaccine Adult - 23 Valent 09/28/2020 TDAP Vaccine 04/03/2018,09/11/2013 Zoster Vaccine Recombinant 09/28/2020,07/11/2020 Family History Medical History Relation Name Comments Cancer Brother Heart Attack Father Cancer Sister Lung Cancer Sister Relation Name Status Comments Brother Father Mother Sister Social History Tobacco Use Types Packs/Day Years Used Date Smoking Tobacco: Never Smokeless Tobacco: Never Tobacco Cessation:Counseling Given: Not Answered Alcohol Use Standard Drinks/Week Comments Yes 0 (1 standard drink = 0.6 oz pur e alcohol) very rarely PHQ-2 Answer Date Recorded Total Score - Questions 1-9 0 0 06/2022 Comments Unknown Sex and Gender Information Value Date Recorded Sex Assigned at Not on file Legal Sex Female 4:09 PM CDT Gender Identity Not on file Sexual Orientation Not on file Last Filed Vital Signs Vital Sign Reading Time Taken Comments Blood Pressure 110/76 10/01/2024 11:49 AM BI CONSULTANT Pulse 78 10/01/2024 11:49 AM BI CONSULTANT Temperature 36 C (96.8 F) 10/01/2024 11:49 AM BI CONSULTANT Respiratory Rate 18 10/01/2024 11:49 AM BI CONSULTANT Oxygen Saturation 99% 10/01/2024 11:49 AM BI CONSULTANT Inhaled Oxygen Concentration - - Weight 63.8 kg (140 lb 9.6 oz) 10/01/2024 11:49 AM BI CONSULTANT Height 162.6 cm (5' 4 ) 10/01/2024 11:49 AM BI CONSULTANT Body Mass Index 24.13 10/01/2024 11:49 AM BI CONSULTANT Plan of Treatment Upcoming Encounters Date Type Department Care Team (Late st Contact Info) Description 09/30/2025 1:00 PM BI CONSULTANT Office Visit [facility] [address] [phone] Antonio Ventura MD [address] [place] [address] Health Maintenance Due Date Last Done Comments DEXA Bone Density 1940 Hepatitis C Virus (HCV) Screening 1940 SARS-COV-2 Immunization ( season) 2025 09/17/2024, 09/02/2023, 06/21/2022, Additional history exists Td Immunization Every 10 Years (Adults With 1 Tdap) 04/03/2028 04/03/2018, 09/11/2013 DTaP/Tdap/Td Immunization Discontinued 04/03/2018, Pneumococcal Immunization (50+ years) Completed 09/28/2020, 09/18/2019 Pneumococcal Immunization Combined Discontinued 09/28/2020, 09/18/2019 Zoster Immunization Completed 09/28/2020, 0 Respiratory Syncytial Virus (RSV) Immunization (Adult) Completed 07/18/2023 Influenza Immunization Completed 4, 07/18/2023, 06/21/2022, Additional history exists Hepatitis B Immunization Aged Out No longer eligible based on patient's age to complete this topic Meningococcal Immunization (ACWY) Aged Out No longer eligible based on patient's age to complete this topic Rotavirus Immunization Aged Out No lo nger eligible based on patient's age to complete this topic [facility] Care Teams Equipment Maintenance Engineer Relationship Specialty Start Date End Date Kalie Encarnacion DO [address] [place] [address] PCP - General Family Medicine 02/04/19 Antonio Ventura MD [address] [place] [address] Consulting Physician Oncology 02/04/19
== END 2024-12-22 09:09 | disposition home or self-care (01) ==
PROVIDERS: PCP Nurse Practitioner Family; Visit Provider Internal Medicine Cardiovascular Disease
DX: Z01.810 Encounter for preprocedural cardiovascular examination (principal); R94.39 Abnormal result of other cardiovascular function study
CPT/HCPCS: 78452; 93017; A9502; J2785

== ENCOUNTER 2025-01-18 15:23 | Outpatient (CLI) | payer MEDICARE, SELFPAY ==
[2025-01-18 16:06] LABS: Partial Thromboplastin Time 26.6 Seconds (22.3-36.8); Prothrombin Time 13.9 Seconds (11.1-14.7)
[2025-01-18 16:35] LABS: Anion Gap 9 mmol/L (4-12); Blood Urea Nitrogen 30 mg/dL (7-17); Calcium 8.3 mg/dL (8.4-10.2); Carbon Dioxide 22 mmol/L (22-30); Chloride 111 mmol/L (98-107); Estimated Glomerular Filt Rate 40; Glucose 117 mg/dL (65-110); Potassium 4.3 mmol/L (3.4-5.0); Sodium 142 mmol/L (137-145)
--- OUTSIDE RECORDS SUMMARY | 2025-01-18 17:54 | XMS_ITS | Clinical Summary ---
Author Organization [facility] Address [address] [place] [address] Care Team Providers Care Coal And Ash Supervisor Name Role Phone Iveth Macedo Primary Care Provider [phone] Encounters Date Type Department Care Team Description 01/05/2025 11:14 AM CDT - 01/05/2025 11:59 PM CDT Hospital Encounter [facility] [address] [place] [address] Denton Feng MD Discharge Disposition: Home or Self Care (Routine Discharge) 01/05/2025 Orders Only [facility] [address] [place] [address] Denton Feng MD 01/05/2025 Travel 10/30/2024 1:12 PM SLIP COVER MAKER - 10/30/2024 11:59 PM SLIP COVER MAKER Hospital Encounter [facility] [address] [place] [address] Iveth Macedo FNP Discharge Disposition: Home or Self Care (Routine Discharge) 10/30/2024 Travel from Last 3 Months Social History [...] Procedure Name Priority Date/Time Associated Diagnosis Comments HC URINALYSIS AUTO W/O MICRO Routine 01/05/2025 2:30 PM CDT Chronic kidney disease, unspecified ALBUMIN URINE RANDOM W/CREATININE Routine 01/05/2025 2:30 PM CDT Chronic kidney disease, unspecified BASIC METABOLIC PANEL Routine 01/05/2025 11:16 AM CDT Chronic kidney disease, unspecified MRI SHOULDER RT WO CON Routine 10/30/2024 2:18 PM SLIP COVER MAKER Pain in right shoulder from Last 3 Months Results * URINALYSIS (01/05/2025 2:30 PM CDT) COLOR (U) YELLOW 01/05/2025 3:59 PM CDT [facility] TRANSPARENCY CLEAR 01/05/2025 3:59 PM CDT [facility] SPECIFIC GRAVITY (U) 1.025 1.000 - 1.030 01/05/2025 3:59 PM CDT [facility] U PH 5.5 5.0 - 9.0 01/05/2025 3:59 PM CDT [facility] LEUKOCYTES (U) NEGATIVE NEGATIVE 01/05/2025 3:59 PM CDT [facility] NITRITES NEGATIVE NEGATIVE 01/05/2025 3:59 PM CDT [facility] PROTEIN RANDOM (U) NEGATIVE NEGATIVE 01/05/2025 3:59 PM CDT [facility] GLUCOSE (U) NEGATIVE NEGATIVE 01/05/2025 3:59 PM CDT [facility] KETONES MG/DL (U) NEGATIVE NEGATIVE 01/05/2025 3:59 PM CDT [facility] BILIRUBIN (U) NEGATIVE NEGATIVE 01/05/2025 3:59 PM CDT [facility] BLOOD (U) NEGATIVE NEGATIVE 01/05/2025 3:59 PM CDT [facility] URINE SPECIMEN OBTAINED BY CLEAN CATCH PROCEDURE / Unknown 01/05/2025 2:30 PM CDT us Denton Feng MD URINE ORDERABLES Final Result [facility] [address] [place] [address], [place] [phone] * MICROALBUMIN CREATININE RATIO (MICROALBUMIN/ALBUMIN) (01/05/2025 2:30 PM CDT) CREATININE (U) 142.5 28 - 217 MG/DL 01/05/2025 3:58 PM CDT [facility] MICROALBUMIN (U) 1.8 <2.0 mg/dL 01/06/20 3:58 PM CDT [facility] ALBUMIN/CREAT RATIO 12.6 <30.0 MG/G 01/05/2025 3:58 PM CDT [facility] URINE SPECIMEN / Unknown 01/05/2025 2:30 PM CDT us Denton Feng MD URINE ORDERABLES Final Result [facility] [address] [place] [address], [place] [phone] * (ABNORMAL) BASIC METABOLIC PANEL (01/05/2025 11:16 AM CDT) [facility] GLUCOSE 96 70 - 99 MG/DL 01/05/2025 12:01 PM CDT [facility] BUN 23(H) 7 - 18 MG/DL 01/05/2025 12:01 PM T [facility] CREATININE S/P/B 1.17(H) 0.55 - 1.02 MG/DL 01/05/2025 12:01 PM T [facility] SODIUM S/P/B 143 136 - 145 MMOL/L 01/05/2025 12:01 PM T [facility] POTASSIUM S/P/B 4.3 3.5 - 5.1 MMOL/L 01/05/2025 12:01 PM T [facility] CHLORIDE S/P/B 106 100 - 108 MMOL/L 01/05/2025 12:01 PM T [facility] CO2 28.0 21 - 32 MMOL/L 01/05/2025 12:01 PM T [facility] CALCIUM S/P/B 9.0 8.5 - 10.1 MG/DL 01/05/2025 12:01 PM T [facility] ANION GAP 9.0 5 - 15 MMOL/L 01/05/2025 12:01 PM T [facility] BUN CREATININE RATIO 19.7 6 - 26 01/05/2025 12:01 PM T [facility] GFR ESTIMATE 47(L) >90 ML/MIN/1.7 3 M2 01/05/2025 12:01 PM CDT [facility] Comment: NOTE: eGFR is not calculated for patients <18 years of age. This is an estimated GFR calculation using the new CKD EPI creatinine equation without race and so does not require a correction factor for race. This estimated GFR should not be used for calculating drug doses. 01/05/2025 11:1 6 AM CDT us Denton Feng MD LABORATORY Final Result [facility] [address] [place] [address], [place] [phone] * MRI SHOULDER RT WO CON (10/30/2024 2:18 PM SLIP COVER MAKER) Anatomical Region Laterality Modality Shoulder Magnetic Resonan ce 11/01/2024 3:14 PM SLIP COVER MAKER Impressions 11/01/2024 3:18 PM SLIP COVER MAKER IMPRESSION: 1. Moderate degenerative change right acromioclavicular joint. 2. Moderate to large amount of subacromial subdeltoid bursal fluid. 3. Small glenohumeral joint effusion. 4. Prominent full-thickness tear distal supraspinatus tendon. 5. Minimal abnormal signal intensity infraspinatus tendon consistent with partial tear or tendinosis. Referred By: IVETH MACEDO Interpreted By: Kike Doty MD, 11/01/2024 3:14 PM Narrative 11/01/2024 3:18 PM SLIP COVER MAKER [facility] [address] [facility] [place] [address] Examination: MRI SHOULDER RT WO CON Exam [...] Procedure Note Kike Doty MD - 11/01/2024 [facility] [address] [facility] [place] [id number] Examination: MRI SHOULDER RT WO CON Exam time: 10/30/2024 1:24 PM Clinical history: Right shoulder pain with limited range of motion. N[place]nown injury. Comparison: No previous MRI right shoulder Technique: Axial fat suppression proton density and fat suppression [id number] were obtained. Oblique coronal T1, T2, fat [...] Doty MD, 11/01/2024 3:14 PM Iveth Macedo [facility] MRI Final Resul t from Last 3 Months Insurance [facility] Care Teams Coal And Ash Supervisor Relationship Specialty Start Date End Date Iveth Macedo FNP [address] [place] [address] PCP - General Nurse Practitioner Family 04/10/24
--- OUTSIDE RECORDS SUMMARY | 2025-01-18 17:54 | XMS_ITS | Encounter Summary ---
Author Organization [facility] Address [address] [place] [address] Phone Care Team Providers Care Blintze Roller Name Role Phone Kalie Encarnacion Primary Care Provide r Antonio Ventura MD Unavailable Encounter Details Date Type Department Care Team (Late st Contact Info) Description 09/17/2024 Telephone [facility] [address] [place] [address] Antonio Ventura MD [address] [place] [address] Social History Tobacco Use Types [...] (Late Contact Info) Description 09/30/2025 1:00 PM MISSIONARY COORDINATOR Office Visit [facility] [address] [address] Antonio Ventura MD [address] [place] [phone] documented as of this encounter Visit Diagnoses Not on filedocumented in this encounter Additional Health Concerns Assessment Noted Time PHQ-9 Depression Total Score: 0 03/30/20 21 1:26 PM CDT documented as of this encounter Care Teams Blintze Roller Relationship Specialty Start Date End Date Kalie Encarnacion DO [address] [place] [address] PCP - General Family Medicine 02/04/19 Antonio Ventura MD [address] [place] [address] Consulting Physician Oncology 02/04/19 documented as of this encounter
--- OUTSIDE RECORDS SUMMARY | 2025-01-18 17:54 | XMS_ITS | Clinical Summary ---
Author Organization [facility] Address [address] [place] [address] Phone Care Team Providers Care Ticket Taker Name Role Phone Kalie Encarnacion DO Primary Care Provide r Antonio Ventura MD Unavailable [phone] Allergies Active Allergy Reactions Criticality Noted Date [...] (monoclonal gammopathy of unknown significa nce) 02/26/2019 Immunizations Immunization Administration Dates Next Due Covid-19, [...] Recorded Total Score - Questions 1-9 0 06/2022 Comments Unknown Sex and Gender Information Value Date Recorded Sex Assigned at Not on file Legal Sex Female 4:09 PM CDT Gender Identity Not on file Sexual Orientation Not on file Last Filed Vital Signs Vital Sign Reading Time Taken Comments Blood Pressure 110/76 10/01/2024 11:49 AM ASSISTANT WOMEN'S TENNIS COACH Pulse 78 10/01/2024 11:49 AM ASSISTANT WOMEN'S TENNIS COACH Temperature 36 C (96.8 F) 10/01/2024 11:49 AM ASSISTANT WOMEN'S TENNIS COACH Respiratory Rate 18 10/01/2024 11:49 AM ASSISTANT WOMEN'S TENNIS COACH Oxygen Saturation 99% 10/01/2024 11:49 AM ASSISTANT WOMEN'S TENNIS COACH Inhaled Oxygen Concentration - - Weight 63.8 kg (140 lb 9.6 oz) 10/01/2024 11:49 AM ASSISTANT WOMEN'S TENNIS COACH Height 162.6 cm (5' 4 ) 10/01/2024 11:49 AM ASSISTANT WOMEN'S TENNIS COACH Body Mass Index 24.13 10/01/2024 11:49 AM ASSISTANT WOMEN'S TENNIS COACH Plan of Treatment Upcoming Encounters Date Type Department Care Team (Late st Contact Info) Description 09/30/2025 1:00 PM ASSISTANT WOMEN'S TENNIS COACH Office Visit [facility] [address] [address] Antonio Ventura MD [address] [place] [phone] Health Maintenance Due Date Last Done [...] to complete this topic Insurance MEDICARE C [facility] Care Teams Ticket Taker Relationship Specialty Start Date End Date Kalie Encarnacion DO [address] [place] [address] PCP - General Family Medicine 02/04/19 Antonio Ventura MD [address] [place] [address] Consulting Physician Oncology 02/04/19
--- OUTSIDE RECORDS SUMMARY | 2025-01-18 17:54 | XMS_ITS | Data Portability ---
Author Organization [facility], [facility], [facility] Address [address] [place] [address] Care Team Providers Care Electromedical Equipment Technician Name Role Phone ERICK TORRES Referring Provider Assessment No assessment recorded. Plan of Treatment Reminders Order Date Submit Date Provider Last Modified By Organization Details Last Modified Time Details Appointments None recorded. Lab None recorded. Referral None recorded. Procedures None recorded. Surgeries None recorded. Imaging None recorded. Medication Orders diclofenac sodium 75 mg tablet,del ayed release 2019 020 INTERFACE [facility] [address] [address] [place], [address], 0 12:55:28 Patient TargetsNo targets recorded. Patient Instructions Encounter Date Encounter Id Patient Instructions Last Modified By Organization Details Last Modified Time 01/04/2020 [id number] HEAT ON AND OFF AND SEE FAMILY DOCTOR SEVERINO hays Not available 01/04/2020 12:55:11 Reason for Referral None Reported. Problems Name Problem SNOMED Code Status Onset Date Resolution Date Notes Provider Name and Address Organization Details Recorded Time Hormone therapy Active 2019 Angelic valenzuela [facility], [facility] 0 12:14:53 Hypercholestero lemia 73469803 Active 2019 Angelic valenzuela [facility], [facility] 0 12:15:03 Problem Notes None recorded. Procedures Surgical History Date Name Laterality Status Provider Name and Address Organization Details Recorded Time 03/05/20 19 Date of Last Mammogram completed Angelic Faustin [facility], [facility] 01/04/2020 12:13:29 Other completed Angelic Faustin [facility], [facility] 01/04/2020 12:13:31 Hysterectomy completed Angelic Faustin [facility] 01/04/2020 12:13:31 Imaging Results None recorded. Procedure Notes None recorded. Medical Equipment None Reported. Allergies Allergen ID Allergen Name Allergen Category Reaction Reaction Severity Criticality Documentation Date Start Date Code Code System Note Provider Name and Address Organization Details Recorded Time 618662 Product containin g penicilli n (product) medicatio n rash Not available Not available 01/04/2020 92121 8001 SNOMED [facility] 0 12:13[facility]29 Medications Name Sig Start Date [...] Address Organization Details Last Updated DateTime 0 27800.3 g 25.5 kg/m2 160.02 cm 97.3 [degF] 66 /min 14 /min 96 % 96 % 155 mm[Hg] 92 mm[Hg] Angelic Faustin [facility] 0 12:12:25 Social History Question Answer Notes LastModified by Organizat ion Details LastModified Time Tobacco Smoking Status Never Smoker Angelic valenzuela [facility] 01/04/2020 12:13:31 Do You Have An Advance Directive? Yes Information not available 01/04/2020 What Is Your Level Of Alcohol Consumption? Occasional Information not available 01/04/2020 What Is Your Level Of Caffeine Consumption? Occasional Information not available 01/04/2020 How Much Tobacco Do You Chew? None [place] [address] Information not available 01/04/2020 What Type Of Diet Are You Following? REGULAR flsonya Information not available 01/04/2020 Which Illicit Or Recreational Drugs Have You Used? None [place] [address] Information not available 01/04/2020 Do You Or Have You Ever Used E-cigarettes Or Vape? Never Used Electronic Cigarettes [place] [address] Information not available 01/04/2020 Education 4 Year College [place] [address] Informatio n not available 01/04/2020 Alcohol Use 1-2 Per Week [place] [address] Information not available 01/04/2020 Marital Status [place] [address] Informatio n not available 01/04/2020 Are You Sexually Active? No [place] [address] Information not available 01/04/2020 Do You Or Have You Ever Used Smokeless Tobacco? Never Used Smokeless Tobacco [place] [address] Information not available 01/04/2020 Sex: Unknown Functional Status Question Answer Note LastModified by Organizat ion Details LastModified Time What is your exercise level? Occasional [place] [address] Information not available 01/04/2020 Mental Status None [...] SNOMED-CT Code Diagnosis ICD10 Code Diagnosis Note [id number] Erick Torres DO [facility] [address] [address] [address] [address] 01/04/2020 11:42:48 01/04/2020 13:02:57 Pain in right knee [id number] 48322 M25.561 ACUTE Health Concerns Section Related Observation LastModified by Organization Detai ls LastModified Time None Recorded Concern Status LastModified by Organization Details LastModified Time None Recorded Advance Directives Directive Y: Payers Encounter Date Sequence Insurance Name Policy Number Policy Boothe Covered Member ID Boothe Member ID Guarantor Name 01/04/2020 1 [place] Carmen Burleson [id number] Carmen Burleson 01/04/2020 2 [employer]IG[employer] SUPPLEMENTAL - [employer]URANCE (MEDICARE SUPPLEMENT) Carmen Burleson [id number] Carmen Burleson Notes Date Note Type Note Provider Name and Address Organization Details Recorded Time 01/04/2020 text/html Musculoskeletal ComplaintReported bypatient.Reason for visit:acute complaint Location:R knee(s) Quality:pain Severity:better Duration:constant Onset/Timing:abrupt;2 days ago Context:normal activity Alleviating factors:rest Aggravating factors:RIDING IN CAR Associated Symptoms:no chest pain; no palpitations; no shortness of breath; no orthopnea; no cough; no leg pain Erick Torres DO [address] [facility] [address], [place], [address], [facility], [place] - [facility], [facility] 01/04/2020 12:56:21 OBGyn Episode No OBEpisode recorded.
--- OUTSIDE RECORDS SUMMARY | 2025-01-18 17:54 | XMS_ITS | Clinical Summary ---
Author Organization [facility] Address [address] [place] [address] Phone Care Team Providers Care Machine Repair Person Name Role Phone Kalie Encarnacion MD Primary Care Provider Allergies Active Allergy Reactions Criticality Noted Date Comments Penicillins 01/28/2019 Medications Medication Sig Dispensed Refills Start Date End Date Status simvastatin (ZOCOR) 20 MG tablet 1 tab once daily 0 8 Active estradiol (ESTRACE) 0.5 MG tablet 1 tab once daily 0 8 Active metoprolol succinate XL (TOPROL-XL) 25 MG 24 hr tablet Take 0.5 tablets by mouth 1 (one) time each day 1 Active Calcium Carbonate 500 MG chewable tabletIndications:Second marti hyperparathyroidism (CMS-HCC) Chew 1 tablet 2 (two) times a day 90 tablet 11 1 01/13/20 25 Discontinued Active Problems Problem Noted Date Diagnosed Date [...] Sign Reading Time Taken Comments Blood Pressure 123/86 01/12/2025 12:52 PM CDT Pulse 76 01/12/2025 12:52 PM CDT Temperature - - Respiratory Rate - - Oxygen Saturation - - Inhaled Oxygen Concentration - - Weight 62.6 kg (138 lb) 01/12/2025 12:52 PM CDT Height 160 cm (5' 3 ) 01/12/2025 12:52 PM CDT Body Mass Index 24.45 01/12/2025 12:52 PM CDT Plan of Treatment Upcoming Encounters Date Type Department Care Team (Late st Contact Info) Description 01/11/2026 1:20 PM CDT Office Visit [facility] [address], [address] [place], [place] [id number] Denton Feng MD [address] [facility] [address] [place], [place] [id number] Health Maintenance Due Date Last Done Comments Pneumococcal PPSV23/PCV13 65 + Years / High and Highest Risk (2 of 4 - PPSV23 or PCV20) 11/13/2019 09/18/2019 COVID-19 Vaccine (3 - Moderna risk series) 02/05/2021 01/08/2021, 12/10/2020 Influenza Vaccine (#1) 2024 11/01/2012 Care Teams Machine Repair Person Relationship Specialty Start Date End Date Kalie Encarnacion MD [address] [place] [address] [place] [phone] PCP - General 01/18/23
== END 2025-01-18 15:24 | disposition home or self-care (01) ==
LOC: ANHSURGERY 15:27
PROVIDERS: Anesthesiology; PCP Nurse Practitioner Family; Visit Provider Orthopaedic Surgery
DX: N18.9 Chronic kidney disease, unspecified (principal)
CPT/HCPCS: 36415; 80048; 85610; 85730

== ENCOUNTER 2025-01-22 00:23 | Day surgery (SDC) | payer MEDICARE, SELFPAY ==
[2025-01-14 14:28] VITALS: BMI 25.7
--- NOTE | 2025-01-14 14:40 | PC.NURSE ---
Report to the Outpatient Waiting Room, entrance under the green pavilion located off [facility], at time __0600am on date __01/22/25 . Planned Procedure Time: _0730am .? Time changes happen often and if your time is changed the preop area will call you the afternoon before. - You and your visitor will be asked to self-screen and do not enter if you have any COVID symptoms. Please call surgeon if you need to reschedule. - A mask is optional within the hospital at this time. Patients may have clear liquids (water, carbonated beverages, clear teas, apple juice) until 3 hours prior to surgery with a maximum of 20 ounces. - No food from midnight until time of surgery and no smoking, or chewing tobacco (or any form of nicotine). No chewing gum, candy or mints. (04:30am) Take only the following medications with a SIP of water on the morning of surgery: Metoprolol DO NOT STOP ANY OF YOUR OTHER PRESCRIPTION MEDICATIONS PRIOR TO SURGERY EXCEPT THE FOLLOWING Hold all vitamins and supplements for 3 days per anesthesiologist. Medications to discontinue per physician None Date to take last dose None Please no make-up, nail malay, hairspray, perfume, deodorant, or body powder the day of surgery.? No jewelry (including any body piercings) or valuables the day of surgery, leave them at home.? Please take a shower or bath the night before, or the morning of, surgery with an antibacterial soap HIBICLEANSE and other ointments/wash per Dr Evans, ? Wear comfortable, loose fitting clothing.? - Jewelry must be removed prior to entering the operating room.? Rings and piercings that are not removed may be cut off. - The hospital will not accept responsibility for valuables.? - Please leave all valuables, including medications, at home the day of surgery. If you are going home after surgery, a licensed transport driver must drive you home.? - NO public transportation without another adult if you receive anesthesia. - We recommend that an adult stay with you for 24 hours following discharge. - We also recommend that you do not drive, make important decision, drink alcoholic beverages, or take any drugs that were not prescribed by your health care provider for at least 24 hours after your discharge time. Follow any additional instructions given to you from your surgeon. Telephone instructions given to ___Patient and asked if any additional questions and then verbalized understanding. Patient advised to call surgeon office or pre surgery nurse liaison [phone] if any additional questions.
[2025-01-22] VITALS (10 sets, daily range): BP systolic 111–155; BP diastolic 62–92; PULSE 56–78; RESP 12–20; TEMP 36.1–36.4; O2SAT 95–100
--- OUTSIDE RECORDS SUMMARY | 2025-01-22 00:25 | XMS_ITS | Clinical Summary ---
Author Organization [facility] Address [address] [place] [address] Care Team Providers Care Vallez Filter Operator Name Role Phone Iveth Macedo Primary Care Provider [phone] Encounters Date Type Department Care Team Description 01/05/2025 11:14 AM CDT - 01/05/2025 11:59 PM CDT Hospital Encounter [facility] [address] [place] [address] Denton Feng MD Discharge Disposition: Home or Self Care (Routine Discharge) 01/05/2025 Orders Only [facility] [address] [place] [address] Denton Feng MD 01/05/2025 Travel 10/30/2024 1:12 PM PULLER THROUGH - 10/30/2024 11:59 PM PULLER THROUGH Hospital Encounter [facility] [address] [place] [address] Iveth Macedo FNP Discharge Disposition: Home or [...] RT WO CON Routine 10/30/2024 2:18 PM PULLER THROUGH Pain in right shoulder from Last 3 Months Results * URINALYSIS (01/05/2025 2:30 PM CDT) COLOR (U) YELLOW 01/05/2025 3:59 PM CDT [facility] TRANSPARENCY CLEAR 01/05/2025 3:59 PM CDT [facility] SPECIFIC GRAVITY (U) 1.025 1.000 - 1.030 01/05/2025 3:59 PM CDT [facility] U PH 5.5 5.0 - 9.0 01/05/2025 3:59 PM CDT [facility] LEUKOCYTES (U) NEGATIVE NEGATIVE 01/05/2025 3:59 PM CDT [facility] NITRITES NEGATIVE NEGATIVE 01/05/2025 3:59 PM CDT [facility] PROTEIN RANDOM (U) NEGATIVE NEGATIVE 01/05/2025 3:59 PM CDT [facility] GLUCOSE (U) NEGATIVE NEGATIVE 01/05/2025 3:59 PM CDT [facility] KETONES MG/DL (U) NEGATIVE NEGATIVE 01/05/2025 3:59 PM CDT [facility] BILIRUBIN (U) NEGATIVE NEGATIVE 01/05/2025 3:59 PM CDT [facility] BLOOD (U) NEGATIVE NEGATIVE 01/05/2025 3:59 PM CDT [facility] URINE SPECIMEN OBTAINED BY CLEAN CATCH PROCEDURE / Unknown 01/05/2025 2:30 PM CDT us Denton Feng MD URINE ORDERABLES Final Result [facility] [address] [place] [address], [place] [phone] * MICROALBUMIN CREATININE RATIO (MICROALBUMIN/ALBUMIN) (01/05/2025 2:30 PM CDT) CREATININE (U) 142.5 28 - 217 MG/DL 01/05/2025 3:58 PM CDT [facility] MICROALBUMIN (U) 1.8 <2.0 mg/dL 01/06/20 3:58 PM CDT [facility] ALBUMIN/CREAT RATIO 12.6 <30.0 MG/G 01/05/2025 3:58 PM CDT [facility] URINE SPECIMEN / Unknown 01/05/2025 2:30 PM CDT us Denton Feng MD URINE ORDERABLES Final Result [facility] [address] [place] [address], [place] [phone] * (ABNORMAL) BASIC METABOLIC PANEL (01/05/2025 11:16 AM CDT) [facility] GLUCOSE 96 70 - 99 MG/DL 01/05/2025 12:01 PM CDT [facility] BUN 23(H) 7 - 18 MG/DL 01/05/2025 12:01 PM T [facility] CREATININE S/P/B 1.17(H) 0.55 - 1.02 MG/DL 01/05/2025 12:01 PM T [facility] SODIUM S/P/B 143 136 - 145 MMOL/L 01/05/2025 12:01 PM T [facility] POTASSIUM S/P/B 4.3 3.5 - 5.1 MMOL/L 01/05/2025 12:01 PM T [facility] CHLORIDE S/P/B 106 100 - 108 MMOL/L 01/05/2025 12:01 PM T [facility] CO2 28.0 21 - 32 MMOL/L 01/05/2025 12:01 PM T [facility] CALCIUM S/P/B 9.0 8.5 - 10.1 MG/DL 01/05/2025 12:01 PM T [facility] ANION GAP 9.0 5 - 15 MMOL/L 01/05/2025 12:01 PM T [facility] BUN CREATININE RATIO 19.7 6 - 26 01/05/2025 12:01 PM T [facility] GFR ESTIMATE 47(L) >90 ML/MIN/1.7 3 M2 01/05/2025 12:01 PM CDT [facility] Comment: NOTE: eGFR is not calculated for patients <18 years of age. This is an estimated GFR calculation using the new CKD EPI creatinine equation without race and so does not require a correction factor for race. This estimated GFR should not be used for calculating drug doses. 01/05/2025 11:1 6 AM CDT us Denton Feng MD LABORATORY Final Result [facility] [address] [place] [address], [place] [phone] * MRI SHOULDER RT WO CON (10/30/2024 2:18 PM PULLER THROUGH) Anatomical Region Laterality Modality Shoulder Magnetic Resonan ce 11/01/2024 3:14 PM PULLER THROUGH Impressions 11/01/2024 3:18 PM PULLER THROUGH IMPRESSION: 1. Moderate degenerative change right acromioclavicular joint. 2. Moderate to large amount of subacromial subdeltoid bursal fluid. 3. Small glenohumeral joint effusion. 4. Prominent full-thickness tear distal supraspinatus tendon. 5. Minimal abnormal signal intensity infraspinatus tendon consistent with partial tear or tendinosis. Referred By: IVETH MACEDO Interpreted By: Kike Doty MD, 11/01/2024 3:14 PM Narrative 11/01/2024 3:18 PM PULLER THROUGH [facility] [address] [address] [place] [address] Examination: MRI SHOULDER RT WO CON Exam [...] Procedure Note Kike Doty MD - 11/01/2024 [facility] [address] [facility] [place] [id number] Examination: MRI SHOULDER RT WO CON Exam time: 10/30/2024 1:24 PM Clinical history: Right shoulder pain with limited range of motion. Noknown injury. Comparison: No previous MRI right shoulder Technique: Axial fat suppression proton density and fat suppression [id number] were obtained. Oblique coronal T1, T2, fat [...] Doty MD, 11/01/2024 3:14 PM Iveth Macedo [facility] MRI Final Resul t from Last 3 Mon[address] Insurance [facility] Care Teams Vallez Filter Operator Relationship Specialty Start Date End Date Iveth Macedo FNP [address] [place] [address] PCP - General Nurse Practitioner Family 04/10/24
--- OUTSIDE RECORDS SUMMARY | 2025-01-22 00:26 | XMS_ITS | Data Portability ---
Author Organization [facility], [facility], [facility] Address [address] [place] [address] Care Team Providers Care Insulation Power Unit Tender Name Role Phone ERICK TORRES Referring Provider Assessment No assessment recorded. Plan of Treatment Reminders Order Date Submit Date Provider Last Modified By Organization Details Last Modified Time Details Appointments None recorded. Lab None recorded. Referral None recorded. Procedures None recorded. Surgeries None recorded. Imaging None recorded. Medication Orders diclofenac sodium 75 mg tablet,del ayed release 2019 020 INTERFACE [facility] [address], [address] [place], [address], 0 12:55:28 Patient TargetsNo targets recorded. Patient Instructions Encounter Date Encounter Id Patient Instructions Last Modified By Organization Details Last Modified Time 01/04/2020 [id number] HEAT ON AND OFF AND SEE FAMILY DOCTOR SEVERINO hays Not available 01/04/2020 12:55:11 Reason for Referral None Reported. Problems Name Problem SNOMED Code Status Onset Date Resolution Date Notes Provider Name and Address Organization Details Recorded Time Hormone therapy Active 2019 Angelic valenzuela [facility], [facility] 0 12:14:53 Hypercholestero lemia 54591643 Active 2019 Angelic valenzuela [facility], [facility] 0 12:15:03 Problem Notes None recorded. Procedures Surgical History Date Name Laterality Status Provider Name and Address Organization Details Recorded Time 03/05/20 19 Date of Last Mammogram completed Angelic Faustin [facility], [facility] 01/04/2020 12:13:29 Other completed Angelic Faustin [facility], [facility] 01/04/2020 12:13:31 Hysterectomy completed Angelic Faustin [facility] 01/04/2020 12:13:31 Imaging Results None recorded. Procedure Notes None recorded. Medical Equipment None Reported. Allergies Allergen ID Allergen Name Allergen Category Reaction Reaction Severity Criticality Documentation Date Start Date Code Code System Note Provider Name and Address Organization Details Recorded Time 882200 Product containin g penicilli n (product) medicatio n rash Not available Not available 01/04/2020 05856 8001 SNOMED [facility] 0 12:13:29 Medications Name Sig Start Date [...] Address Organization Details Last Updated DateTime 0 [address]09.3 g 25.5 kg/m2 160.02 cm 97.3 [degF] 66 /min 14 /min 96 % 96 % 155 mm[Hg] 92 mm[Hg] Angelic Faustin [facility] 0 12:12:25 Social History Question Answer Notes LastModified by Organizat ion Details LastModified Time Tobacco Smoking Status Never Smoker Angelic valenzuela [facility] 01/04/2020 12:13:31 Do You Have An Advance Directive? Yes Information not available 01/04/2020 What Is Your Level Of Alcohol Consumption? Occasional Information not available 01/04/2020 What Is Your Level Of Caffeine Consumption? Occasional Information not available 01/04/2020 How Much Tobacco Do You Chew? None [place] [address] Information not available 01/04/2020 What Type Of Diet Are You Following? [facility]ULAR [facility] Information not available 01/04/2020 Which Illicit Or Recreational Drugs Have You Used? None [place] [address] Information not available 01/04/2020 Do You Or Have You Ever Used E-cigarettes Or Vape? Never Used Electronic Cigarettes [place] [address] Information not available 01/04/2020 Education 4 Year College [place] [address] Informatio n not available 01/04/2020 Alcohol Use 1-2 Per Week [place] [address] Information not available 01/04/2020 Marital Status [place] [address] Informatio n not available 01/04/2020 Are You Sexually Active? No [place] [address] Information not available 01/04/2020 Do You Or Have You Ever Used Smokeless Tobacco? Never Used Smokeless Tobacco [place] [address] Information not available 01/04/2020 Sex: Unknown Functional Status Question Answer Note LastModified by Organizat ion Details LastModified Time What is your exercise level? Occasional [place] [address] Information not available 01/04/2020 Mental Status None recorded. Family History Nothing Reported. Medical History Condition Response Cancer (location) N Other N Gout N Thyroid Disease N Kidney Stones N Emphysema/COPD N Measles/Mumps N Sexually Transmitted Disease N Depression N Prostate Problems N Vascular Disease N Rash/Skin Condition N Amputation (location) N Parkinson's N Paralysis N Cardiac Pacemaker/defibrillator N Headaches/Migraines N Nerve Damage / Neuropathy N Arthritis N Sleep disorder/Insomnia N Infertility N Heart disease / Heart Attack N Crohn's Disease N HIV/AIDS N Stroke/TIA N Colon Problems N High Cholesterol Y Serious Injuries N Kidney Disease N Memory Loss/Alzheimer's N High blood pressure N Gallbladder disease N Congestive heart failure N Falls N Hormone Replacement Y Blood Thinner Treatment N Alcohol Overuse N Nervous Breakdown N Samuel's Esophagus N Anemia N Urinary Problems N Colon Polyps N Gastritis N Hospitalizations (other than operations) N Diabetes N Back pain Y Rheumatic Fever N Bleeding Disorder N Cardiac Arrhythmias /irregular heart rat e N Osteopenia/Osteoporosis N Anxiety/Stress N Vision Problems N Asthma N Erectile / Sexual Dysfunction N Ostomies (location) N Seizures N Sleep Apnea N Jaundice N Past Reacton to Contrast Media N [...] SNOMED-CT Code Diagnosis ICD10 Code Diagnosis Note [id number] Erick Torres DO [facility] [address] [address] [address] [address] [address] 01/04/2020 11:42:48 01/04/2020 13:02:57 Pain in right knee [id number] [address]2689 M25.561 ACUTE Health Concerns Section Related Observation LastModified by Organization Detai ls LastModified Time None Recorded Concern Status LastModified by Organization Details LastModified Time None Recorded Advance Directives Directive Y: Payers Encounter Date Sequence Insurance Name Policy Number Policy Boothe Covered Member ID Boothe Member ID Guarantor Name 01/04/2020 1 [place] Carmen Burleson [id number] Carmen Burleson 01/04/2020 2 CIGNA SUPPLEMENTAL - [employer] AND LIFE INSURANCE (MEDICARE SUPPLEMENT) Carmen Burleson [id number] Carmen Burleson Notes Date Note Type Note Provider Name and Address Organization Details Recorded Time 01/04/2020 text/html Musculoskeletal ComplaintReported bypatient.Reason for visit:acute complaint Location:R knee(s) Quality:pain Severity:better Duration:constant Onset/Timing:abrupt;2 days ago Context:normal activity Alleviating factors:rest Aggravating factors:RIDING IN CAR Associated Symptoms:no chest pain; no palpitations; no shortness of breath; no orthopnea; no cough; no leg pain Erick Torres DO [address] [facility] [address], [place], [address], [email or web address] - [facility], [facility] 01/04/2020 12:56:21 OBGyn Episode No OBEpisode recorded.
--- OUTSIDE RECORDS SUMMARY | 2025-01-22 00:26 | XMS_ITS | Clinical Summary ---
Author Organization [facility] Address [address] [place] [address] Phone Care Team Providers Care Gear Setter Name Role Phone Kalie Encarnacion DO Primary Care Provide r Antonio Ventura MD Unavailable Allergies Active Allergy Reactions Criticality Noted Date [...] Comments Blood Pressure 110/76 10/01/2024 11:49 AM UI SOFTWARE ENGINEER Pulse 78 10/01/2024 11:49 AM UI SOFTWARE ENGINEER Temperature 36 C (96.8 F) 10/01/2024 11:49 AM UI SOFTWARE ENGINEER Respiratory Rate 18 10/01/2024 11:49 AM UI SOFTWARE ENGINEER Oxygen Saturation 99% 10/01/2024 11:49 AM UI SOFTWARE ENGINEER Inhaled Oxygen Concentration - - Weight 63.8 kg (140 lb 9.6 oz) 10/01/2024 11:49 AM UI SOFTWARE ENGINEER Height 162.6 cm (5' 4 ) 10/01/2024 11:49 AM UI SOFTWARE ENGINEER Body Mass Index 24.13 10/01/2024 11:49 AM UI SOFTWARE ENGINEER Plan of Treatment Upcoming Encounters Date Type Department Care Team (Late st Contact Info) Description 09/30/2025 1:00 PM UI SOFTWARE ENGINEER Office Visit [facility] [id number] [phone] nAtonio Ventura MD [address] [place] [phone] Health Maintenance Due Date Last Done [...] to complete this topic Insurance MEDICARE C [facility] Care Teams Gear Setter Relationship Specialty Start Date End Date Kalie Encarnacion DO [address] [place] [id number] PCP - General Family Medicine 02/04/19 Antonio Ventura MD [address] [place] [phone] Consulting Physician Oncology 02/04/19
--- OUTSIDE RECORDS SUMMARY | 2025-01-22 00:26 | XMS_ITS | Clinical Summary ---
Author Organization [facility] Address [address] [place] [phone] Phone Care Team Providers Care Traffic Superintendent Name Role Phone Kalie Encarnacion MD Primary [...] Description 01/11/2026 1:20 PM CDT Office Visit [facility] [address] [place], [place] [phone] Denton Feng MD [address] [facility] [address] [place], [place] [phone] Health Maintenance Due Date Last Done Comments Pneumococcal PPSV23/PCV13 65 + Years / High and Highest Risk (2 of 4 - PPSV23 or PCV20) 11/13/2019 09/18/2019 COVID-19 Vaccine (3 - Moderna risk series) 02/05/2021 01/08/2021, 12/10/2020 Influenza Vaccine (#1) 2024 11/01/2012 Care Teams Traffic Superintendent Relationship Specialty Start Date End Date Kalie Encarnacion MD [address] [place] [address] [place] [phone] PCP - General 01/18/23
--- OUTSIDE RECORDS SUMMARY | 2025-01-22 00:26 | XMS_ITS | Encounter Summary ---
Author Organization [facility] Address [address] [place] [address] Phone Care Team Providers Care Investment Professional Name Role Phone Kalie Encarnacion Primary Care Provide r Antonio Ventura MD Unavailable Encounter Details Date Type Department Care Team (Late st Contact Info) Description 09/17/2024 Telephone [facility] [address] [place] [address] Antonio Ventura MD [address] [place] [address] Social History Tobacco Use Types [...] (Late Contact Info) Description 09/30/2025 1:00 PM JINRIKISHA DRIVER Office Visit [facility] [address] [facility] [address] [place] [address] Antonio Ventura MD [address] [place] [phone] documented as of this encounter Visit Diagnoses Not on filedocumented in this encounter Additional Health Concerns Assessment Noted Time PHQ-9 Depression Total Score: 0 03/30/20 21 1:26 PM CDT documented as of this encounter Care Teams Investment Professional Relationship Specialty Start Date End Date Kalie Encarnacion DO [address] [place] [id number] PCP - General Family Medicine 02/04/19 Antonio Ventura MD [address] [place] [phone] Consulting Physician Oncology 02/04/19 documented as of this encounter
[2025-01-22] MEDS: ACETAMINOPHEN 500 MG TABLET 1000 MG PO (06:40)
[2025-01-22] MEDS: LACTATED RINGERS 1,000 ML 30 ML IV CONT ×2 (06:40→09:31)
[2025-01-22] MEDS: CELECOXIB 200 MG CAPSULE PO (06:40)
--- NOTE | 2025-01-22 07:08 | P.PNAN_ITS ---
Anes - Initial Pre Proc Eval Procedure: Operation Date: 01/22/25 07:30 Proposed Procedures p Right Shoulder Rotator Cuff Repair - Jose Evans MD Date/Time: 01/22/25 07:08 Surgeon: Jose Evans MD Pre Op Diagnosis: Rt Shoulder Rot Cuff Tear Patient Data Age: 84 Gender: F Height: 1.57 m Weight: 63.3 kg Last Vital Signs Temp 97.6 F 01/22/25 06:40 Pulse 61 01/22/25 06:40 Resp 14 01/22/25 06:40 BP 155/72 H 01/22/25 06:40 Pulse Ox 97 01/22/25 06:40 O2 Del Method Room Air 01/22/25 06:40 Allergies Allergy/AdvReac Type Severity Reaction Status Date / Time Penicillins AdvReac Mild Rash Verified 01/22/25 07:00 Home Medications ?Medication ?Instructions ?Recorded ?Confirmed ?Type simvastatin 20 mg tablet See Rx Instructions .Route 05/01/24 01/14/25 Rx .COMPLEX #90 tabs metoprolol succinate 25 mg See Rx Instructions .Route 10/26/24 01/22/25 Rx tablet,extended release 24 hr .COMPLEX #45 tabs estradiol 0.5 mg tablet See Rx Instructions .Route 12/11/24 01/14/25 Rx .COMPLEX #90 tabs benzoyl peroxide 5 % topical gel 1 applic topical DAILY #42.5 grams 01/05/25 01/14/25 Rx chlorhexidine gluconate 4 % 1 applic topical ONCE #237 mL 01/05/25 01/14/25 Rx topical liquid (Hibiclens) clindamycin phosphate 1 % topical 1 applic topical DAILY #30 grams 01/05/25 01/14/25 Rx gel Patient hx anesthesia problems: none Family hx anesthesia problems: none Results Review: All pre-operative results and documents have been reviewed as part of the pre- operative evaluation. [facility] Past Medical History Medical History Right knee DJD Atypical chest pain Esophageal stricture GERD with esophagitis Hiatal hernia Bilateral knee pain LBBB (left bundle branch block) Palpitations Hiatal hernia Atrial fibrillation patient denies Hyperlipidemia Surgical History Surgical History H/O: hysterectomy Family History Family History Other Arthritis Family history of heart disease in male family member before age 55 Family history of lung cancer Family history of throat cancer Hypertension Social History Social History Social History: 07/08/24 very confident with medical forms 12/07/24 patient declined SDOH Smoking status: Never smoker Second hand tobacco smoke exposure: No Alcohol intake: current Drinks per week: 2 Alcohol use details: 1 per mos Substance use: never Substance use type: does not use Do You Feel Safe in your Home?: Yes Lack of Transportation: No Lack of Food: Never True Current Housing: I Have Housing Concerned About Future Housing: No Difficulty Paying Gas/Electric Bills: No Difficulty Paying for Meds: No Currently Unemployed: No Education: Bachelor's Degree Difficulty w/ Childcare or Family Care: No Living arrangements: alone Occupation/Education: retired Gender identity (if verbalized by the patient): Female Spiritual care concerns: No Agree to blood products: Yes Anes - Eval Final PreProcedure Day of Procedure 01/22/25 07:08 Patient weight: normal Lungs: normal air movement Airway: Mallampati scale class II and special considerations (Missing teeth in post aspect, upper and lower, none loose. ) Neurological: alert and oriented Last oral intake: >/= 8 hours ASA classification: III Emergent: no Anesthetic plan: proceed Anesthesia type and monitoring: general ETT and standard monitoring Results Review: All pre-operative results and documents have been reviewed as part of the pre- operative evaluation. HTN, hyperlipidemia, hx LBBB, s/p stress test 11/2024 w no ischemia, nml LVEF. Informed Consent: The patient's anesthetic plan and its attendant risks and benefits were discussed with the patient/family/POA. Questions were solicited and answers provided to the satisfaction of the patient/family/POA.
--- NOTE | 2025-01-22 07:18 | WPDHPUPDATE1 ---
History and Physical Update Update Date/Time: 01/22/25 07:18 History and Physical has been reviewed, including an updated exam of the patient. There are NO changes in the patient's condition. Risks, benefits, and alternatives have been discussed and questions answered. Patient agrees to proceed with procedure.
[2025-01-22] MEDS: ceFAZolin 2 GM/D5W 50 ML 2 GM/50 ML BAG IVPB (08:00)
[2025-01-22] MEDS: BUPIVACAINE/EPINEPHRINE 0.5% 10 ML VIAL 30 ML INFILTRATE (08:26)
--- NOTE | 2025-01-22 09:24 | W.PM.PROC2 ---
Procedure Note - Detailed Date of Procedure 01/22/25 Pre-op Diagnosis Rt Shoulder Rot Cuff Tear Post-op Diagnosis Same Procedure Performed REPAIR RIGHT ROTATOR CUFF Surgeon Jose Evans MD Anesthesia General Description of Procedure THE PATIENT WAS TAKEN TO THE OPERATING ROOM AND THEN INTUBATED AND PLACED IN THE BEACH CHAIR POSITION. THE RIGHT UPPER EXTREMITY WAS PREPPED AND DRAPED IN THE NORMAL STERILE FASHION. AN INCISION WAS MADE IN BETWEEN THE TONIA-LATERAL ACROMION AND THE AC JOINT. THE FASCIA WAS IDENTIFIED. NEXT A MINI OPEN INCISION WAS MADE THROUGH THE DELTOID MUSCLE EXPOSING THE SUBACROMIAL SPACE. A LIMITED ACROMIOPLASTY WAS PREFORMED. THE ROTATOR CUFF WAS IDENTIFIED. THERE WAS A FULL THICKNESS TEAR. IT MEASURED APPROXIMATELY 2 CM X 2 CM. THE GREATER TUBEROSITY WAS DEBRIDED TO BLEEDING BONE. 2 ARTHREX 5.5 SUTURE ANCHORS WERE PLACED IN TO GOOD BONE AND HAD VERY GOOD BITES. DEONTE-HONEY TYPE REPAIRS WERE DONE TO THE ROTATOR CUFF AND THERE WAS GOOD APPROXIMATION TO THE GREATER TUBEROSITY. THE REPAIR WAS EXCELLENT. THERE WAS NO IMPINGEMENT ON THE REPAIR FROM THE ACROMION WITH RANGE OF MOTION. THE WOUND WAS IRRIGATED WITH COPIOUS AMOUNTS OF ANTIBIOTIC SOLUTION. THE DELTOID MUSCLE WAS REPAIRED WITH #2 FIBER WIRE AND 0 VICRYL SUTURE. THE SUBCUTANEOUS LAYER WAS APPROXIMATED WITH 2-0 VICRYL. THE SKIN WAS APPROXIMATED WITH 3-0 QUIL AND DERMABOND. STERILE DRESSING WAS APPLIED. PATIENT WAS EXTUBATED. Estimated Blood Loss 20 Complications No immediate complications Condition Stable Disposition PACU
== END 2025-01-22 11:54 | disposition home or self-care (01) ==
PROVIDERS: PCP Nurse Practitioner Family; Visit Provider Orthopaedic Surgery
PROC: (CPT 23420; principal; 2025-01-22 07:30)
DX: M75.121 Complete rotator cuff tear or rupture of right shoulder, not specified as traumatic (principal); M17.11 Unilateral primary osteoarthritis, right knee; E78.5 Hyperlipidemia, unspecified; I10 Essential (primary) hypertension; K21.9 Gastro-esophageal reflux disease without esophagitis; R00.2 Palpitations; I48.91 Unspecified atrial fibrillation; Z98.890 Other specified postprocedural states; Z86.79 Personal history of other diseases of the circulatory system; Z87.19 Personal history of other diseases of the digestive system; Z80.1 Family history of malignant neoplasm of trachea, bronchus and lung; Z82.49 Family history of ischemic heart disease and other diseases of the circulatory system
CPT/HCPCS: 23412; A9270; C1713; J0690; J2003; J2270; J2405; J2704; J3010; J7120

== ENCOUNTER 2025-05-11 10:30 | Outpatient (RCR) | payer MEDICARE, SELFPAY ==
--- NOTE | 2025-02-12 10:04 | PTOPEVAL1 ---
Assessment and note entered by Giovanna Mai, PT Evaluation Information Assessment Status Evaluation Diagnosis M75.121 ICD-10 Condition Codes (PT) Pain in right shoulder M25.511 Onset Pt presents s/p Rt RCR, DOS 01/22/25 Subjective Information Reports 02/04/2025 sling removal; C/o pain rated as 9/10 to the shoulder and upper arm when putting shirts on, 0/10 at rest. She is R handed. Currently not having any trouble sleeping . Finished all prescribed medications and not taking any at the moment. Bending the elbow does not hurt, pain is felt when moving elbow out to the side. Reported Pain Level Pain Score 0: Self Report Assessment PT Clinical Summary Pt presents to therapy 3 wks s/p R RTC by satish Bustso significant limitation in ROM and endurance, postural dysfunction and c/o pain with movement. She is also limited due to post surgery restrictions at this time. Quick DASH score is 59% indicating significant disability at this time. She will greatly benefit from skilled PT intervention to improve functional mobility, strength, muscle endurance and guidance in appropriate exercises to avoid injuries or post surgery complications while recovering. Plan of Care Interventions Check Out for Orthotic/Prosthetic,Electrical Stimulation,Hot Pack/Cold Pack,Manual Therapy, Neuro Re-education,Patient/Caregiver Education, Therapeutic Activities,Therapeutic Exercise PT Services Indicated Yes Treatment Frequency and 2x/wk x 20 visits Duration These treatments will address the objective and functional deficits as defined above. The patient will be advanced safely and appropriately in order for the patient to progress towards his/her prior level of function. Additional exercises will be introduced and as well as a comprehensive home exercise program upon discharge, if needed, ?to ensure carryover of functional gains achieved in the clinic. This treatment plan has been reviewed and agreement upon by the patient.
--- NOTE | 2025-03-26 16:55 | PTOPPROG ---
Assessment and note entered by Giovanna Mai, PT Progress Information Assessment Status Progress Diagnosis M75.121 ICD-10 Condition Codes (PT) Pain in right shoulder M25.511 Onset Pt presents s/p Rt RCR, DOS 01/22/25 Subjective Information Able to lift R arm actively without increased pain , continue to have difficulty reaching back of head and lower back. States occasional soreness to anterior part of shoulder down her upper arm. Assessment PT Clinical Summary Pt received 10 treatment sessions and demos good progress with therapy, showed gains in mobility and strength allowing improved function of RUE. She is driving and is able to move her R UE on the steering wheel without increased discomfort. However, she reports slow progress with her Quick DASH score of 55% from 59% which still falls under significant disability with substantial limitations in functional activities, she also continue to demo ROM deficits, weakness, scapular instability and postural dysfunction which are highly influenced by pain and discomfort at end- ranges. Pt will greatly benefit from continued skilled PT intervention to address remaining impairments with guided exercises and modalities prn to reduce risk of re-injury or risk of further loss of function secondary to scar tissue formation post surgery. Plan of Care Interventions Check Out for Orthotic/Prosthetic,Electrical Stimulation,Hot Pack/Cold Pack,Manual Therapy, Neuro Re-education,Patient/Caregiver Education, Therapeutic Activities,Therapeutic Exercise, Ultrasound,Other Other Interventions IASTM, Taping PT Services Indicated Yes Treatment Frequency and 2x/wk x 16 visits Duration These treatments will address the objective and functional deficits as defined above. The patient will be advanced safely and appropriately in order for the patient to progress towards his/her prior level of function. Additional exercises will be introduced and as well as a comprehensive home exercise program upon discharge, if needed, ?to ensure carryover of functional gains achieved in the clinic. This treatment plan has been reviewed and agreement upon by the patient.
--- NOTE | 2025-03-26 16:55 | OPREHPOC ---
Outpatient Therapy Plan of Care This is a Multidisciplinary Plan of Care that may contain components documented by all disciplines (PT, OT, and ST.) PT Problem 1 PT Problem #1 Knowledge Deficit PT Goal 1 Goal / Goal Update Pt will demo good understanding of diagnosis and prognosis and HEPs based on Ortho protocol. Target Visit 10 Progress Met PT Goal 2 Goal / Goal Update Pt will perform R shoulder strengthening and stabilization HEPs independently and with proper technique and form Target Visit 10 PT Problem 2 PT Problem #2 Pain PT Goal 1 Goal / Goal Update Pt will report pain level of 2-3 with functional movements. -goal met Pt will report pain level of 1-2/10 with overhead movement -updated 03/23/2025 Target Visit 16 Progress Met PT Problem 3 PT Problem #3 Impaired Range of Motion PT Goal 1 Goal / Goal Update Pt will demo WNL active ROM of R shoulder without pain and discomfort. Target Visit 20 Progress Partially Met PT Problem 4 PT Problem #4 Impaired Strength PT Goal 1 Goal / Goal Update Pt will demo at least 4-/5 MMT to all tested planes of R shoulder. Target Visit 20 Progress Partially Met PT Problem 5 PT Problem #5 Impaired Functional Mobility PT Goal 1 Goal / Goal Update Pt will report 10% or less on QUICK DASH indicating minimal disability or almost normal upper limb function. - cont working on this goal; Pt reports a QUICK DASH Score of 55% at re-eval (). Target Visit 20 Progress Not Met
--- NOTE | 2025-04-27 11:17 | PTOPPROG ---
Assessment and note entered by April Casper, PT Evaluation Information Assessment Status Progress Diagnosis M75.121 ICD-10 Condition Codes (PT) Pain in right shoulder M25.511 Onset Pt presents s/p Rt RCR, DOS 01/22/25 Subjective Information Overall is ok can do almost anything with my elbow bent. Still difficulty lifting over shoulder height with arm straight reports due to pain Easier time reaching behind the back. Better time curling her hair accept one spot still Self-perceived improvement:50% Assessment PT Clinical Summary Pt has attended therapy consistently since her RTC surgery approx 3 months ago. She shows improving ROM in multiple areas both passive and actively, improved strength compared to prior evaluation testing, and improved pain levels as well. She does continue to demonstrate impingement symptoms in true abduction, has low tolerance for end-range stretching with muscular end-feels, and poor muscle patterning with active ROM activities. Pt will benefit from continued therapy in order to address these deficits, improve function and pain to meet patient functional goals. Plan of Care Interventions Check Out for Orthotic/Prosthetic,Electrical Stimulation,Hot Pack/Cold Pack,Manual Therapy, Neuro Re-education,Patient/Caregiver Education, Therapeutic Activities,Therapeutic Exercise, Ultrasound,Other Other Interventions IASTM, Taping PT Services Indicated Yes Treatment Frequency and 2x weekly x 10 visits Duration These treatments will address the objective and functional deficits as defined above. The patient will be advanced safely and appropriately in order for the patient to progress towards his/her prior level of function. Additional exercises will be introduced and as well as a comprehensive home exercise program upon discharge, if needed, ?to ensure carryover of functional gains achieved in the clinic. This treatment plan has been reviewed and agreement upon by the patient.
--- NOTE | 2025-04-27 11:18 | OPREHPOC ---
Outpatient Therapy Plan of Care This is a Multidisciplinary Plan of Care that may contain components documented by all disciplines (PT, OT, and ST.) PT Problem 1 PT Problem #1 Knowledge Deficit PT Goal 1 Goal / Goal Update Pt will demo good understanding of diagnosis and prognosis and HEPs based on Ortho protocol. Target Visit 10 Progress Met PT Goal 2 Goal / Goal Update Pt will perform R shoulder strengthening and stabilization HEPs independently and with proper technique and form Target Visit 10 PT Problem 2 PT Problem #2 Pain PT Goal 1 Goal / Goal Update (added 03/23/2025) Pt will report pain level of 1-2 /10 with overhead movement -continue Target Visit 16 Progress Met PT Problem 3 PT Problem #3 Impaired Range of Motion PT Goal 1 Goal / Goal Update Pt will demo WNL active ROM of R shoulder without pain and discomfort. - range progressing in internal, external, and flexion. Abduction remains unchanged Target Visit 20 Progress Partially Met PT Problem 4 PT Problem #4 Impaired Strength PT Goal 1 Goal / Goal Update Pt will demo at least 4-/5 MMT to all tested planes of R shoulder. Target Visit 20 Progress Met PT Goal 2 Goal / Goal Update Pt will demonstrate strength equal or greater than unaffected UE Target Visit 30 PT Problem 5 PT Problem #5 Impaired Functional Mobility PT Goal 1 Goal / Goal Update Pt will report 10% or less on QUICK DASH indicating minimal disability or almost normal upper limb function. - cont working on this goal; Decreased from 56% to 23% Target Visit 20 Progress Not Met
== END 2025-05-12 23:59 | disposition home or self-care (01) ==
LOC: ANHHIPT 10:30
PROVIDERS: PCP Nurse Practitioner Family; Visit Provider Orthopaedic Surgery
DX: M75.121 Complete rotator cuff tear or rupture of right shoulder, not specified as traumatic (principal)
CPT/HCPCS: 97014; 97110; 97112; 97140; 97161; 97530; 97750; G0283

== ENCOUNTER 2025-06-14 14:00 | Outpatient (RCR) | payer MEDICARE, SELFPAY ==
--- NOTE | 2025-05-28 11:09 | PTOPEVAL1 ---
Assessment and note entered by April Casper, PT Evaluation Information Assessment Status Progress Diagnosis M75.121 ICD-10 Condition Codes (PT) Pain in right shoulder M25.511 Onset Pt presents s/p Rt RCR, DOS 01/22/25 Subjective Information Reports 75% improved at the most Pt reports at rest has no pain at all. States is better with her curling her hair, just one spot on the left side now is difficult and sometimes unable Can now reach behind back to wash with wash cloth and other arm Can reach up but would need both hands to pull heavy items down. But is able to reach up in the top cabinet Reported Pain Level Pain Score 0: Self Report Additional Pain Score Comments stiffness in the shoulder when first waking in the morning Assessment PT Clinical Summary Pt has attended therapy consistently 25 visits post R RTC repair. Since last reevaluation and this reevaluation, minimal objective changes have been noted. She does report on her DASH outcome measure less perceived disability decreasing from 25% to 11%. She reports functional improvements at home for grooming and reaching into overhead cabinets. However she also cont to have pain with movement ranging from 0/10 to 4/10 at worst. Pt presentation today suggests impingement in the glenohumeral joint with poor scapulohumeral and scapulothoracic awareness and control. Continues to also show overall RTC weakness. Thus pt would benefit form continued therapy in order to address these deficits and meet overall goals up until next follow up. At MD follow up, will assess continuation beyond that day. Plan of Care Interventions Check Out for Orthotic/Prosthetic,Electrical Stimulation,Hot Pack/Cold Pack,Manual Therapy, Neuro Re-education,Patient/Caregiver Education, Therapeutic Activities,Therapeutic Exercise, Ultrasound,Other Other Interventions IASTM, Taping PT Services Indicated Yes Treatment Frequency and 2x weekly x 12 visits Duration These treatments will address the objective and functional deficits as defined above. The patient will be advanced safely and appropriately in order for the patient to progress towards his/her prior level of function. Additional exercises will be introduced and as well as a comprehensive home exercise program upon discharge, if needed, ?to ensure carryover of functional gains achieved in the clinic. This treatment plan has been reviewed and agreement upon by the patient.
--- NOTE | 2025-05-28 11:09 | OPREHPOC ---
Outpatient Therapy Plan of Care This is a Multidisciplinary Plan of Care that may contain components documented by all disciplines (PT, OT, and ST.) PT Problem 1 PT Problem #1 Knowledge Deficit PT Goal 1 Goal / Goal Update Pt will demo good understanding of diagnosis and prognosis and HEPs based on Ortho protocol. Target Visit 10 Progress Met PT Goal 2 Goal / Goal Update Pt will perform R shoulder strengthening and stabilization HEPs independently and with proper technique and form Target Visit 10 PT Problem 2 PT Problem #2 Pain PT Goal 1 Goal / Goal Update (continue 05/28/2025) Pt will report pain level of 1 -2/10 with overhead movement Target Visit 16 Progress Met PT Problem 3 PT Problem #3 Impaired Range of Motion PT Goal 1 Goal / Goal Update Pt will demo WNL active ROM of R shoulder without pain and discomfort. - range grossly unchanged from last reevaluation Target Visit 20 Progress Partially Met PT Goal 2 Goal / Goal Update Pt will demonstrate active ROM WFL RUE without pain or discomfort PT Problem 4 PT Problem #4 Impaired Strength PT Goal 1 Goal / Goal Update Pt will demo at least 4-/5 MMT to all tested planes of R shoulder. Target Visit 20 Progress Met PT Goal 2 Goal / Goal Update Pt will demonstrate strength equal or greater than unaffected UE Target Visit 30 Progress Not Met PT Problem 5 PT Problem #5 Impaired Functional Mobility PT Goal 1 Goal / Goal Update Pt will report 10% or less on QUICK DASH indicating minimal disability or almost normal upper limb function. - cont working on this goal; Decreased from 23% to 11% updated to 38th visit Target Visit 38 Progress Not Met
--- NOTE | 2025-06-14 16:07 | PTOPDC ---
Assessment and note entered by April Casper, PT Evaluation Information Assessment Status Discharge Diagnosis M75.121 ICD-10 Condition Codes (PT) Pain in right shoulder M25.511 Onset Pt presents s/p Rt RCR, DOS 01/22/25 Subjective Information Pt reports has made a lot of progress in her therapy. Pt reports stiffness yesterday and today after last session. Pt states she can do her hair wiht her RUE now, was difficult but she could do it. Pulling items down from top cabinet is better just heavy things needs two hands. Improvemnent : 90% Reported Pain Level Pain Score 0: Self Report Assessment PT Clinical Summary Pt has attended therapy consistently for post- operative RTC repair right shoulder. Her progress has been slow due to low tolerance for discomfort. Pt passive ROM is much better though still has some impingement end-feels at end range flexion. Abduction is muscular end-feel but again low tolerance for discomfort. Formal testing of shoulder musculature inconsistent with active ROM against gravity. She reports feeling 90% improved overall and has met a majority of her goals. She has been educated to contact her Ortho should her discomfort return or she notices loss of range and function. Thus patient is being discharged from therapy for max benefit being met at this time. Plan of Care PT Services Indicated no
== END 2025-06-18 09:46 | disposition home or self-care (01) ==
LOC: ANHHIPT 14:00
PROVIDERS: PCP Nurse Practitioner Family; Visit Provider Orthopaedic Surgery
DX: M75.121 Complete rotator cuff tear or rupture of right shoulder, not specified as traumatic (principal)
CPT/HCPCS: 97014; 97110; 97140; 97750; G0283